=== PATIENT | female | born 1955 | race Caucasian/White ===

== ENCOUNTER 2020-11-17 20:30 | Inpatient (IN) ==
[2020-11-17] MEDS ORDERED: Isovue-370 500 ML BOTTLE IVP ONE (20:43)
[2020-11-17] MEDS ORDERED: 0.9 % Sodium Chloride 1,000 ML IVC ONE ×3 (20:43→22:12)
[2020-11-17] MEDS ORDERED: Ondansetron 4 MG/2 ML VIAL IVP ONE (20:43)
[2020-11-17] MEDS ORDERED: Ondansetron 4 MG/2 ML VIAL ONE (21:01)
[2020-11-17 21:11] LABS: VBG HCO3 25 mEq/L (21-27); VBG PCO2 61 mmHg (41-51); VBG PH 7.21 pH Units (7.32-7.42); VBG PO2 51 mmHg (25-50)
[2020-11-17 21:15] LABS: Basophils % 0.3 %; Eosinophils # 0.1 K/mcL (0.0-0.6); Eosinophils % 1.4 %; Hematocrit 38.2 % (35.3-44.9); Hemoglobin 11.9 g/dL (11.5-15.4); Immature Granulocytes % 0.4 % (0-4); Lymphocytes # 1.8 K/mcL (0.6-4.6); Lymphocytes % 18.1 %; Mean Corpuscular HGB Conc 31.2 g/dL (31.6-35.5); Mean Corpuscular Hemoglobin 27.4 pg (28.0-33.3); Mean Corpuscular Volume 87.8 fL (83.0-100.0); Mean Platelet Volume 10.1 fL (9.4-12.4); Monocytes # 0.7 K/mcL (0.0-1.3); Monocytes % 7.3 %; Neutrophils # 7.2 K/mcL (1.6-8.9); Platelet Count 204 K/mcL (140-400); Red Blood Count 4.35 M/mcL (3.82-4.97); Red Cell Distribution Width 14.4 % (11.5-14.5); Segmented Neutrophils % 72.5 %
[2020-11-17 21:16] LABS: INR 1.1; Prothrombin Time 12.8 Seconds (9.4-12.1)
[2020-11-17] MEDS ORDERED: Piperacillin/Tazobactam 3.375 GM in 0.9 % Sodium Chloride Mini Bag 100 ML IVPB ONE (21:16)
[2020-11-17] MEDS ORDERED: Vancomycin 1,750 MG/517.5 ML IV.SOLN IVPB ONE (21:16)
[2020-11-17 21:30] LABS: Bacteria,Urine Many per hpf (None-Few); Bilirubin,Urine Negative (Negative); Blood,Urine Moderate (Negative); Clarity,Urine Ex.Turbid (Clear); Color,Urine Yellow (Yellow); Glucose,Urine (UA) >=1000 mg/dL (Normal); Ketones,Urine Negative (Negative); Leukocyte Esterase,Urine Large (Negative); Mucus,Urine Few per lpf (None-Few); Nitrite,Urine Negative (Negative); Protein,Urine 50 mg/dL (Neg-Trace); RBC,Urine 30-50 per hpf (0-3); Specific Gravity,Urine 1.016 (1.010-1.025); Squamous Epithelial Cell,Urine Moderate per hpf (None-Few); Urobilinogen,Urine Normal (Normal); WBC,Urine TNTC per hpf (0-3)
[2020-11-17 21:34] LABS: Alanine Aminotransferase 14 Units/L (7-52); Albumin 3.8 g/dL (3.5-5.7); Albumin/Globulin Ratio 1.1 (1.1-2.2); Alkaline Phosphatase 102 Units/L (34-104); Aspartate Amino Transferase 56 Units/L (13-39); BUN/Creatinine Ratio 11 (6-26); Bilirubin,Direct 0.1 mg/dL (0.0-0.2); Bilirubin,Indirect 0.2 mg/dL (0.0-1.0); Bilirubin,Total 0.3 mg/dL (0.3-1.0); Blood Urea Nitrogen 63 mg/dL (8-23); Calcium 8.3 mg/dL (8.6-10.3); Carbon Dioxide 22 mEq/L (23-29); Chloride 97 mEq/L (98-107); Globulin 3.5 g/dL (2.4-3.5); Glucose 287 mg/dL (70-105); Lipase 17 Units/L (11-82); Osmolality,Calculated 304 (280-300); Potassium 4.5 mEq/L (3.5-5.1); Sodium 133 mEq/L (136-145); Total Protein 7.3 g/dL (6.4-8.9); Troponin I < 0.03 ng/mL (< 0.04); eGFR For African Americans 9 (> 60); eGFR For Non-African Americans 7 (> 60)
[2020-11-18] MEDS: Norepinephrine 4 MG/254 ML IV.SOLN IVC SCH (00:21)
[2020-11-18] MEDS ORDERED: Naloxone 0.4 MG/ML INJ IVP PRN (01:30)
[2020-11-18] MEDS ORDERED: 0.9 % Sodium Chloride 1,000 ML IVC SCH (01:30)
[2020-11-18] MEDS ORDERED: Ondansetron 4 MG/2 ML VIAL IVP PRN (01:30)
[2020-11-18] MEDS ORDERED: Vancomycin 1,750 MG in 0.9 % Sodium Chloride 250 ML IVPB SCH (02:00)
[2020-11-18] MEDS ORDERED: *HR* Dextrose 50 % in Water (Vial) 50 ML VIAL IVP PRN (02:12)
[2020-11-18] MEDS ORDERED: Dextrose Gel 15 GM/37.5 ML TUBE PO PRN ×2 (02:12)
[2020-11-18] MEDS ORDERED: D5% in Water 1,000 ML IVC PRN (02:12)
[2020-11-18] MEDS ORDERED: Insulin LISPRO 300 UNITS/3 ML VIAL SUBQ SCH (04:00)
[2020-11-18] MEDS: *HR* Heparin 5,000 UNIT/ML VIAL SQ SCH ×3 (05:15→21:20)
[2020-11-18 05:45] LABS: Basophils % 0.4 %; Eosinophils # 0.1 K/mcL (0.0-0.6); Eosinophils % 1.4 %; Immature Granulocytes % 0.2 % (0-4); Lymphocytes # 2.5 K/mcL (0.6-4.6); Lymphocytes % 30.2 %; Mean Corpuscular HGB Conc 31.2 g/dL (31.6-35.5); Mean Corpuscular Hemoglobin 27.6 pg (28.0-33.3); Mean Corpuscular Volume 88.5 fL (83.0-100.0); Mean Platelet Volume 10.5 fL (9.4-12.4); Monocytes # 0.4 K/mcL (0.0-1.3); Neutrophils # 5.3 K/mcL (1.6-8.9); Platelet Count 202 K/mcL (140-400); Red Blood Count 3.73 M/mcL (3.82-4.97); Red Cell Distribution Width 14.6 % (11.5-14.5); Segmented Neutrophils % 62.8 %; White Blood Count 8.4 K/mcL (4.3-11.1)
[2020-11-18 05:48] LABS: Hemoglobin 10.3 g/dL (11.5-15.4)
[2020-11-18 05:56] LABS: VBG HCO3 23 mEq/L (21-27); VBG PCO2 53 mmHg (41-51); VBG PH 7.24 pH Units (7.32-7.42); VBG PO2 74 mmHg (25-50)
[2020-11-18 06:09] LABS: Albumin/Globulin Ratio 1.1 (1.1-2.2); Bilirubin,Total 0.3 mg/dL (0.3-1.0); Calcium 7.2 mg/dL (8.6-10.3); Globulin 2.8 g/dL (2.4-3.5); Potassium 4.3 mEq/L (3.5-5.1); Total Protein 5.8 g/dL (6.4-8.9); Troponin I 0.03 ng/mL (< 0.04)
[2020-11-18 06:44] LABS: Adenovirus Not Detected (Not Detect); Bordetella Pertussis Not Detected (Not Detect); Chlamydophila pneumoniae Not Detected (Not Detect); Coronavirus 229E Not Detected (Not Detect); Coronavirus HKU1 Not Detected (Not Detect); Coronavirus NL63 Not Detected (Not Detect); Coronavirus OC43 Not Detected (Not Detect); Human Metapneumovirus Not Detected (Not Detect); Human Rhinovirus/Enterovirus Not Detected (Not Detect); Influenza A Subtype 2009 H1 Not Detected (Not Detect); Influenza B Not Detected (Not Detect); Mycoplasma pneumoniae Not Detected (Not Detect); Parainfluenza Virus 1 Not Detected (Not Detect); Parainfluenza Virus 2 Not Detected (Not Detect); Parainfluenza Virus 3 Not Detected (Not Detect); Parainfluenza Virus 4 Not Detected (Not Detect); Respiratory Syncytial Virus Not Detected (Not Detect); SARS-CoV-2 Not Detected (Not Detect)
[2020-11-18] MEDS: Insulin LISPRO 300 UNITS/3 ML VIAL SUBQ SCH ×5 (06:44→20:35)
[2020-11-18] MEDS: Piperacillin/Tazobactam 3.375 GM in 0.9 % Sodium Chloride Mini Bag 100 ML IVPB SCH ×2 (09:18→21:20)
[2020-11-18] MEDS ORDERED: Vancomycin 1,750 MG/517.5 ML IV.SOLN IVPB ONE (12:00)
[2020-11-18 15:14] LABS: Uric Acid 9.7 mg/dL (2.3-7.6)
[2020-11-18] MEDS ORDERED: Melatonin 3 MG TABLET PO PRN (21:14)
[2020-11-18] MEDS: Acetaminophen 325 MG TABLET PO PRN (21:20)
[2020-11-19] MEDS: Insulin LISPRO 300 UNITS/3 ML VIAL SUBQ SCH ×6 (01:09→20:07)
[2020-11-19] MEDS ORDERED: Vancomycin 1,750 MG in 0.9 % Sodium Chloride 250 ML IVPB SCH (02:00)
[2020-11-19] MEDS: Acetaminophen 325 MG TABLET PO PRN (04:20)
[2020-11-19] MEDS: *HR* Heparin 5,000 UNIT/ML VIAL SQ SCH ×3 (05:37→20:07)
[2020-11-19 05:58] LABS: Basophils % 0.4 %; Eosinophils # 0.2 K/mcL (0.0-0.6); Hematocrit 32.9 % (35.3-44.9); Hemoglobin 10.1 g/dL (11.5-15.4); Immature Granulocytes % 0.4 % (0-4); Lymphocytes # 2.4 K/mcL (0.6-4.6); Lymphocytes % 45.7 %; Mean Corpuscular HGB Conc 30.7 g/dL (31.6-35.5); Mean Corpuscular Hemoglobin 27.3 pg (28.0-33.3); Mean Corpuscular Volume 88.9 fL (83.0-100.0); Mean Platelet Volume 10.4 fL (9.4-12.4); Monocytes # 0.4 K/mcL (0.0-1.3); Monocytes % 7.2 %; Neutrophils # 2.2 K/mcL (1.6-8.9); Platelet Count 161 K/mcL (140-400); Red Cell Distribution Width 14.6 % (11.5-14.5); Segmented Neutrophils % 42.3 %; White Blood Count 5.3 K/mcL (4.3-11.1)
[2020-11-19 06:19] LABS: Albumin 2.9 g/dL (3.5-5.7); Bilirubin,Total 0.3 mg/dL (0.3-1.0); Calcium 7.6 mg/dL (8.6-10.3); Globulin 2.9 g/dL (2.4-3.5); Potassium 3.8 mEq/L (3.5-5.1); Total Protein 5.8 g/dL (6.4-8.9)
[2020-11-19] MEDS: Norepinephrine 4 MG/254 ML IV.SOLN IVC SCH (08:25)
[2020-11-19] MEDS: Piperacillin/Tazobactam 3.375 GM in 0.9 % Sodium Chloride Mini Bag 100 ML IVPB SCH ×2 (10:11→18:58)
[2020-11-19] MEDS ORDERED: Dextrose Gel 15 GM/37.5 ML TUBE PO PRN ×2 (10:38)
[2020-11-19] MEDS ORDERED: *HR* Dextrose 50 % in Water (Vial) 50 ML VIAL IVP PRN (10:38)
[2020-11-19] MEDS ORDERED: Naloxone 0.4 MG/ML INJ IVP PRN (10:38)
[2020-11-19] MEDS ORDERED: Melatonin 3 MG TABLET PO PRN (10:38)
[2020-11-19] MEDS ORDERED: Ondansetron 4 MG/2 ML VIAL IVP PRN (10:38)
[2020-11-19] MEDS ORDERED: D5% in Water 1,000 ML IVC PRN (10:38)
[2020-11-20] MEDS: Piperacillin/Tazobactam 3.375 GM in 0.9 % Sodium Chloride Mini Bag 100 ML IVPB SCH ×2 (01:40→09:52)
[2020-11-20] MEDS: Acetaminophen 325 MG TABLET PO PRN ×2 (04:09→17:10)
[2020-11-20] MEDS: *HR* Heparin 5,000 UNIT/ML VIAL SQ SCH ×3 (04:09→21:44)
[2020-11-20 07:02] LABS: VBG Ionized Calcium 1.02 mmol/L (1.15-1.35)
[2020-11-20 07:19] LABS: Immature Granulocytes % 0.3 % (0-4)
[2020-11-20 07:21] LABS: Basophils % 0.6 %; Eosinophils # 0.1 K/mcL (0.0-0.6); Eosinophils % 3.9 %; Hemoglobin 10.5 g/dL (11.5-15.4); Immature Platelets 5.2 % (1.1-6.1); Lymphocytes # 1.5 K/mcL (0.6-4.6); Mean Corpuscular HGB Conc 30.9 g/dL (31.6-35.5); Mean Corpuscular Hemoglobin 27.6 pg (28.0-33.3); Mean Corpuscular Volume 89.2 fL (83.0-100.0); Mean Platelet Volume 11.1 fL (9.4-12.4); Monocytes # 0.3 K/mcL (0.0-1.3); Monocytes % 7.3 %; Neutrophils # 1.7 K/mcL (1.6-8.9); Platelet Count 131 K/mcL (140-400); Red Blood Count 3.81 M/mcL (3.82-4.97); Red Cell Distribution Width 14.8 % (11.5-14.5); Segmented Neutrophils % 46.9 %; White Blood Count 3.6 K/mcL (4.3-11.1)
[2020-11-20] MEDS ORDERED: Insulin LISPRO 300 UNITS/3 ML VIAL SUBQ SCH (07:30)
[2020-11-20 07:36] LABS: Albumin 3.1 g/dL (3.5-5.7); Bilirubin,Total 0.2 mg/dL (0.3-1.0); Calcium 8.1 mg/dL (8.6-10.3); Globulin 3.1 g/dL (2.4-3.5); Magnesium 1.5 mg/dL (1.6-2.6); Phosphorous 2.2 mg/dL (2.7-4.5); Potassium 4.7 mEq/L (3.5-5.1); Total Protein 6.2 g/dL (6.4-8.9)
[2020-11-20] MEDS ORDERED: Melatonin 3 MG TABLET PO PRN (07:56)
[2020-11-20] MEDS: hydroCHLOROthiazide 25 MG TABLET PO SCH (09:51)
[2020-11-20] MEDS: lisinopriL 20 MG TABLET PO SCH (09:51)
[2020-11-20] MEDS: Pregabalin 75 MG CAPSULE PO SCH ×3 (09:51→21:44)
[2020-11-20] MEDS: Insulin LISPRO 300 UNITS/3 ML VIAL SUBQ SCH ×4 (09:52→22:37)
[2020-11-20] MEDS ORDERED: Metoclopramide 10 MG/2 ML VIAL IVP ONE (12:15)
[2020-11-20 16:26] LABS: Estimated Average Glucose 395 mg/dl; Hemoglobin A1C 15.4 %
[2020-11-20] MEDS: Insulin DETEMIR 100 UNIT/ML X5UNITS SUBQ SCH (17:12)
[2020-11-21] MEDS: Acetaminophen 325 MG TABLET PO PRN ×3 (04:36→21:20)
[2020-11-21] MEDS: *HR* Heparin 5,000 UNIT/ML VIAL SQ SCH ×3 (04:36→21:19)
[2020-11-21 05:01] LABS: Hematocrit 38.5 % (35.3-44.9); Mean Corpuscular HGB Conc 31.2 g/dL (31.6-35.5); Mean Corpuscular Hemoglobin 27.6 pg (28.0-33.3); Mean Corpuscular Volume 88.5 fL (83.0-100.0); Mean Platelet Volume 11.5 fL (9.4-12.4); Platelet Count 189 K/mcL (140-400); Red Blood Count 4.35 M/mcL (3.82-4.97); Red Cell Distribution Width 14.4 % (11.5-14.5)
[2020-11-21 05:06] LABS: White Blood Count 5.5 K/mcL (4.3-11.1)
[2020-11-21 05:08] LABS: Calcium 8.7 mg/dL (8.6-10.3); Potassium 4.9 mEq/L (3.5-5.1)
[2020-11-21] MEDS: hydroCHLOROthiazide 25 MG TABLET PO SCH (08:05)
[2020-11-21] MEDS: Insulin DETEMIR 100 UNIT/ML X5UNITS SUBQ SCH (08:06)
[2020-11-21] MEDS: Insulin LISPRO 300 UNITS/3 ML VIAL SUBQ SCH ×4 (08:06→21:21)
[2020-11-21] MEDS: Pregabalin 75 MG CAPSULE PO SCH ×3 (08:06→21:19)
[2020-11-21] MEDS: lisinopriL 20 MG TABLET PO SCH (08:06)
[2020-11-22] MEDS: Acetaminophen 325 MG TABLET PO PRN (04:51)
[2020-11-22] MEDS: *HR* Heparin 5,000 UNIT/ML VIAL SQ SCH (04:51)
[2020-11-22 08:02] VITALS: BP 153/73
[2020-11-22] MEDS: Pregabalin 75 MG CAPSULE PO SCH (09:08)
[2020-11-22] MEDS: lisinopriL 20 MG TABLET PO SCH (09:08)
[2020-11-22] MEDS: hydroCHLOROthiazide 25 MG TABLET PO SCH (09:08)
[2020-11-22] MEDS: Insulin DETEMIR 100 UNIT/ML X5UNITS SUBQ SCH (09:13)
[2020-11-22] MEDS: Insulin LISPRO 300 UNITS/3 ML VIAL SUBQ SCH (09:13)
== END 2020-11-22 13:20 | disposition home health service (06) | DRG 871 ==
LOC: EMEROOARM 20:30 → SUATTDRO 11-18 00:39 → ICNU 11-18 00:39 → 2ANU 11-19 12:19
PROVIDERS: ADMIT Student in an Organized Health Care Education/Training Program; ATTEND Internal Medicine

== ENCOUNTER 2021-03-10 16:27 | Inpatient (IN) ==
[2021-03-10] MEDS ORDERED: 0.9 % Sodium Chloride 1,000 ML IVC ONE (18:21)
[2021-03-10] MEDS ORDERED: Prochlorperazine 10 MG/2 ML VIAL IVP STA (18:21)
[2021-03-10 18:59] LABS: Basophils # 0.1 K/mcL (0.0-0.2); Basophils % 0.4 %; Eosinophils # 0.1 K/mcL (0.0-0.6); Eosinophils % 0.4 %; Hematocrit 33.9 % (35.3-44.9); Hemoglobin 10.6 g/dL (11.5-15.4); Immature Granulocytes % 0.6 % (0-4); Lymphocytes # 2.4 K/mcL (0.6-4.6); Mean Corpuscular HGB Conc 31.3 g/dL (31.6-35.5); Mean Corpuscular Hemoglobin 26.9 pg (28.0-33.3); Mean Platelet Volume 10.1 fL (9.4-12.4); Monocytes # 0.8 K/mcL (0.0-1.3); Monocytes % 5.8 %; Neutrophils # 10.7 K/mcL (1.6-8.9); Platelet Count 209 K/mcL (140-400); Red Blood Count 3.94 M/mcL (3.82-4.97); Red Cell Distribution Width 13.6 % (11.5-14.5); Segmented Neutrophils % 75.8 %; White Blood Count 14.1 K/mcL (4.3-11.1)
[2021-03-10 19:06] LABS: INR 1.3; Prothrombin Time 14.4 Seconds (9.4-12.1)
[2021-03-10 19:21] LABS: Alanine Aminotransferase 6 Units/L (7-52); Albumin 2.9 g/dL (3.5-5.7); Albumin/Globulin Ratio 0.9 (1.1-2.2); Alkaline Phosphatase 87 Units/L (34-104); Aspartate Amino Transferase 6 Units/L (13-39); BUN/Creatinine Ratio 25 (6-26); Bilirubin,Total 0.3 mg/dL (0.3-1.0); Blood Urea Nitrogen 39 mg/dL (8-23); Carbon Dioxide 18 mEq/L (23-29); Chloride 104 mEq/L (98-107); Globulin 3.2 g/dL (2.4-3.5); Glucose 345 mg/dL (70-105); Osmolality,Calculated 299 (280-300); Potassium 3.4 mEq/L (3.5-5.1); Sodium 133 mEq/L (136-145); Total Protein 6.1 g/dL (6.4-8.9); Troponin I < 0.03 ng/mL (< 0.04); eGFR For African Americans 41 (> 60); eGFR For Non-African Americans 34 (> 60)
[2021-03-10 20:48] LABS: Bacteria,Urine Few per hpf (None-Few); Bilirubin,Urine Negative (Negative); Blood,Urine Trace (Negative); Budding Yeast,Urine Few per hpf (None Seen); Clarity,Urine Ex.Turbid (Clear); Color,Urine Yellow (Yellow); Glucose,Urine (UA) >=1000 mg/dL (Normal); Ketones,Urine Negative (Negative); Leukocyte Esterase,Urine Large (Negative); Mucus,Urine Few per lpf (None-Few); Nitrite,Urine Negative (Negative); Protein,Urine Trace mg/dL (Neg-Trace); Specific Gravity,Urine 1.022 (1.010-1.025); Squamous Epithelial Cell,Urine Few per hpf (None-Few); Urobilinogen,Urine Normal (Normal); WBC,Urine TNTC per hpf (0-3)
[2021-03-10] MEDS ORDERED: cefTRIAXone 1,000 MG in Water for inj. (sterile) 10 ML IVP ONE (20:56)
[2021-03-10] MEDS ORDERED: Naloxone 0.4 MG/ML INJ IVP PRN (21:23)
[2021-03-10] MEDS ORDERED: Melatonin 3 MG TABLET PO PRN (21:23)
[2021-03-10] MEDS ORDERED: 0.9 % Sodium Chloride 1,000 ML IVC SCH (21:30)
[2021-03-10] MEDS ORDERED: D5% in Water 1,000 ML IVC PRN (22:26)
[2021-03-10] MEDS ORDERED: *HR* Dextrose 50 % in Water (Vial) 50 ML VIAL IVP PRN (22:26)
[2021-03-10] MEDS ORDERED: Dextrose Gel 15 GM/37.5 ML TUBE PO PRN ×2 (22:26)
[2021-03-10] MEDS ORDERED: Insulin DETEMIR 100 UNIT/ML X5UNITS SUBQ SCH (22:30)
[2021-03-10 23:10] LABS: Adenovirus Not Detected (Not Detect); Bordetella Pertussis Not Detected (Not Detect); Chlamydophila pneumoniae Not Detected (Not Detect); Coronavirus 229E Not Detected (Not Detect); Coronavirus HKU1 Not Detected (Not Detect); Coronavirus NL63 Not Detected (Not Detect); Coronavirus OC43 Not Detected (Not Detect); Human Metapneumovirus Not Detected (Not Detect); Human Rhinovirus/Enterovirus Not Detected (Not Detect); Influenza A Subtype 2009 H1 Not Detected (Not Detect); Influenza B Not Detected (Not Detect); Mycoplasma pneumoniae Not Detected (Not Detect); Parainfluenza Virus 1 Not Detected (Not Detect); Parainfluenza Virus 2 Not Detected (Not Detect); Parainfluenza Virus 3 Not Detected (Not Detect); Parainfluenza Virus 4 Not Detected (Not Detect); Respiratory Syncytial Virus Not Detected (Not Detect); SARS-CoV-2 Not Detected (Not Detect)
[2021-03-11] MEDS ORDERED: Prochlorperazine 10 MG/2 ML VIAL IVP PRN ×2 (01:06→23:35)
[2021-03-11] MEDS ORDERED: 0.9 % Sodium Chloride 1,000 ML IVC SCH (01:32)
[2021-03-11] MEDS: Insulin LISPRO 300 UNITS/3 ML VIAL SUBQ SCH ×10 (01:40→23:56)
[2021-03-11] MEDS ORDERED: Gadolinium Contrast Agent (WT Based) IV PRN ×2 (04:11→11:53)
[2021-03-11 06:04] LABS: C-Reactive Protein 154 mg/L (Less than 10)
[2021-03-11] MEDS ORDERED: Ketorolac 30 MG/ML VIAL IVP ONE ×2 (07:56→23:30)
[2021-03-11] MEDS: cefTRIAXone 1,000 MG in 0.9 % Sodium Chloride Mini Bag 100 ML IVPB SCH (08:00)
[2021-03-11 08:58] LABS: Hematocrit 32.2 % (35.3-44.9); Hemoglobin 10.5 g/dL (11.5-15.4); Mean Corpuscular HGB Conc 32.6 g/dL (31.6-35.5); Mean Corpuscular Hemoglobin 27.9 pg (28.0-33.3); Mean Corpuscular Volume 85.4 fL (83.0-100.0); Platelet Count 190 K/mcL (140-400); Red Blood Count 3.77 M/mcL (3.82-4.97); White Blood Count 12.6 K/mcL (4.3-11.1)
[2021-03-11 09:31] LABS: Calcium 8.5 mg/dL (8.6-10.3)
[2021-03-11] MEDS: Prochlorperazine 10 MG/2 ML VIAL IVP SCH (10:15)
[2021-03-11] MEDS ORDERED: Isovue-370 500 ML BOTTLE IVP ONE (11:51)
[2021-03-11] MEDS ORDERED: Vancomycin 1,750 MG/517.5 ML IV.SOLN IVPB ONE (13:00)
[2021-03-11] MEDS: *HR* Heparin 5,000 UNIT/ML VIAL SQ SCH (16:36)
[2021-03-11] MEDS: Insulin DETEMIR 100 UNIT/ML X5UNITS SUBQ SCH (20:02)
[2021-03-11] MEDS: SUMAtriptan succinate 50 MG TABLET PO PRN ×2 (20:03→22:40)
[2021-03-11] MEDS ORDERED: *HR* Metoprolol 5 MG/5 ML VIAL IVP ONE (22:48)
[2021-03-12 02:22] LABS: Hematocrit 33.8 % (35.3-44.9); Hemoglobin 10.7 g/dL (11.5-15.4); Mean Corpuscular HGB Conc 31.7 g/dL (31.6-35.5); Mean Corpuscular Hemoglobin 27.2 pg (28.0-33.3); Mean Corpuscular Volume 85.8 fL (83.0-100.0); Platelet Count 154 K/mcL (140-400); Red Blood Count 3.94 M/mcL (3.82-4.97); Red Cell Distribution Width 13.9 % (11.5-14.5); White Blood Count 10.8 K/mcL (4.3-11.1)
[2021-03-12] MEDS: Insulin LISPRO 300 UNITS/3 ML VIAL SUBQ SCH ×7 (02:35→21:55)
[2021-03-12 02:37] LABS: Albumin 3.2 g/dL (3.5-5.7); Albumin/Globulin Ratio 0.8 (1.1-2.2); Bilirubin,Total 0.3 mg/dL (0.3-1.0); Calcium 8.6 mg/dL (8.6-10.3); Globulin 3.8 g/dL (2.4-3.5); Potassium 4.6 mEq/L (3.5-5.1)
[2021-03-12 04:07] LABS: Estimated Average Glucose 401 mg/dl; Hemoglobin A1C 15.6 %
[2021-03-12] MEDS: *HR* Heparin 5,000 UNIT/ML VIAL SQ SCH ×2 (05:20→16:37)
[2021-03-12] MEDS: Prochlorperazine 10 MG/2 ML VIAL IVP SCH (07:51)
[2021-03-12] MEDS: SUMAtriptan succinate 50 MG TABLET PO PRN ×3 (07:52→21:54)
[2021-03-12] MEDS: Insulin DETEMIR 100 UNIT/ML X5UNITS SUBQ SCH ×2 (07:52→21:54)
[2021-03-12] MEDS: cefTRIAXone 1,000 MG in 0.9 % Sodium Chloride Mini Bag 100 ML IVPB SCH (07:53)
[2021-03-12] MEDS ORDERED: Gadolinium Contrast Agent (WT Based) IV PRN (08:32)
[2021-03-12] MEDS ORDERED: Vancomycin 1,750 MG in 0.9 % Sodium Chloride 250 ML IVPB SCH (09:00)
[2021-03-12] MEDS: Acetaminophen 325 MG TABLET PO PRN (10:41)
[2021-03-12] MEDS ORDERED: *HR* OxyCODONE Immed Rel 5 MG TABLET PO ONE (10:43)
[2021-03-12] MEDS ORDERED: Vancomycin 1,750 MG/517.5 ML IV.SOLN IVPB SCH (13:00)
[2021-03-12 14:16] LABS: Glucose,CSF 159 mg/dL (40-70); Total Protein,CSF 114 mg/dL (15-45)
[2021-03-12 14:18] LABS: Red Blood Cell,CSF 19000 RBC/mcL
[2021-03-12] MEDS ORDERED: Isovue-370 500 ML BOTTLE IVP ONE (15:17)
[2021-03-12] MEDS: Acyclovir 600 MG in D5% in Water 250 ML IVPB SCH (15:30)
[2021-03-12] MEDS ORDERED: Ringers Solution, Lactated 1,000 ML IVC SCH (15:30)
[2021-03-12 15:39] LABS: Appearance,CSF Bloody (Clear); Basophils,CSF 0 %; Eosinophils,CSF 0 %
[2021-03-12 16:01] LABS: Protein/Creatinine Ratio,Urine 0.97 mg/mg (0.00-0.20); Sodium, Urine 58.3 mEq/L
[2021-03-12 16:45] LABS: Uric Acid 7.4 mg/dL (2.3-7.6)
[2021-03-12 17:07] LABS: Lactate Dehydrogenase 184 Units/L (140-271)
[2021-03-12] MEDS ORDERED: Metoclopramide 10 MG/2 ML VIAL IVP ONE (17:41)
[2021-03-12] MEDS ORDERED: Prochlorperazine 10 MG/2 ML VIAL IVP PRN (17:42)
[2021-03-12] MEDS: Ondansetron 4 MG/2 ML VIAL IVP PRN (17:53)
[2021-03-12 17:56] LABS: Ferritin 119 ng/mL (10-120)
[2021-03-12] MEDS ORDERED: levoFLOXacin 750 MG TABLET PO SCH (20:15)
[2021-03-12] MEDS ORDERED: *HR* Metoprolol 5 MG/5 ML VIAL IVP ONE (23:09)
[2021-03-13 02:10] LABS: Complement C3 195 mg/dL (87-200)
[2021-03-13 03:42] LABS: Hepatitis B Surface Antigen Nonreactive (Nonreactive)
[2021-03-13 04:11] LABS: Hepatitis B Core IgM Nonreactive (Nonreactive); Hepatitis C Virus Antibody Nonreactive (Nonreactive)
[2021-03-13 04:13] LABS: Hepatitis A Antibody IgM Nonreactive (Nonreactive)
[2021-03-13] MEDS: *HR* Heparin 5,000 UNIT/ML VIAL SQ SCH ×2 (05:42→17:01)
[2021-03-13] MEDS: Acetaminophen 325 MG TABLET PO PRN ×2 (05:43→13:33)
[2021-03-13] MEDS: SUMAtriptan succinate 50 MG TABLET PO PRN ×2 (05:44→20:16)
[2021-03-13 06:04] LABS: Hematocrit 34.8 % (35.3-44.9); Hemoglobin 10.8 g/dL (11.5-15.4); Mean Corpuscular Hemoglobin 26.9 pg (28.0-33.3); Mean Corpuscular Volume 86.8 fL (83.0-100.0); Platelet Count 214 K/mcL (140-400); Red Blood Count 4.01 M/mcL (3.82-4.97); Red Cell Distribution Width 13.5 % (11.5-14.5); White Blood Count 8.5 K/mcL (4.3-11.1)
[2021-03-13 06:30] LABS: Albumin 3.6 g/dL (3.5-5.7); Albumin/Globulin Ratio 0.9 (1.1-2.2); Bilirubin,Total 0.3 mg/dL (0.3-1.0); Calcium 9.1 mg/dL (8.6-10.3); Globulin 3.9 g/dL (2.4-3.5); Potassium 4.6 mEq/L (3.5-5.1); Total Protein 7.5 g/dL (6.4-8.9)
[2021-03-13] MEDS: Insulin DETEMIR 100 UNIT/ML X5UNITS SUBQ SCH ×2 (07:52→20:16)
[2021-03-13] MEDS: Ondansetron 4 MG/2 ML VIAL IVP PRN (07:52)
[2021-03-13] MEDS: Insulin LISPRO 300 UNITS/3 ML VIAL SUBQ SCH ×3 (07:52→17:02)
[2021-03-13] MEDS: Acyclovir 600 MG in D5% in Water 250 ML IVPB SCH (14:08)
[2021-03-13] MEDS ORDERED: Ondansetron 4 MG/2 ML VIAL IVP ONE (14:31)
[2021-03-13] MEDS: lisinopriL 10 MG TABLET PO SCH (14:41)
[2021-03-13] MEDS: MethylPREDNISolone 40 MG/ML VIAL IVP SCH (17:01)
[2021-03-13] MEDS ORDERED: Prochlorperazine 10 MG/2 ML VIAL IVP PRN (17:43)
[2021-03-13] MEDS ORDERED: levoFLOXacin 750 MG TABLET PO SCH (18:00)
[2021-03-13] MEDS ORDERED: Insulin LISPRO 300 UNITS/3 ML VIAL SUBQ SCH ×2 (21:00)
[2021-03-14] MEDS ORDERED: Acyclovir 800 MG in D5% in Water 250 ML IVPB SCH (03:00)
[2021-03-14] MEDS: SUMAtriptan succinate 50 MG TABLET PO PRN (03:26)
[2021-03-14] MEDS: Ondansetron 4 MG/2 ML VIAL IVP PRN ×2 (03:26→12:13)
[2021-03-14 03:43] LABS: Hematocrit 36.4 % (35.3-44.9); Hemoglobin 11.3 g/dL (11.5-15.4); Mean Corpuscular Hemoglobin 26.8 pg (28.0-33.3); Mean Corpuscular Volume 86.3 fL (83.0-100.0); Mean Platelet Volume 9.8 fL (9.4-12.4); Platelet Count 270 K/mcL (140-400); Red Blood Count 4.22 M/mcL (3.82-4.97); Red Cell Distribution Width 13.5 % (11.5-14.5); White Blood Count 6.9 K/mcL (4.3-11.1)
[2021-03-14 04:03] LABS: Albumin 3.5 g/dL (3.5-5.7); Albumin/Globulin Ratio 0.8 (1.1-2.2); Bilirubin,Total 0.3 mg/dL (0.3-1.0); Calcium 9.4 mg/dL (8.6-10.3); Globulin 4.3 g/dL (2.4-3.5); Potassium 4.7 mEq/L (3.5-5.1); Total Protein 7.8 g/dL (6.4-8.9)
[2021-03-14] MEDS: *HR* Heparin 5,000 UNIT/ML VIAL SQ SCH (06:16)
[2021-03-14 06:42] VITALS: BP 150/88
[2021-03-14] MEDS: MethylPREDNISolone 40 MG/ML VIAL IVP SCH (08:08)
[2021-03-14] MEDS: Insulin DETEMIR 100 UNIT/ML X5UNITS SUBQ SCH (08:08)
[2021-03-14] MEDS: Insulin LISPRO 300 UNITS/3 ML VIAL SUBQ SCH ×2 (08:08→12:33)
[2021-03-14] MEDS: lisinopriL 10 MG TABLET PO SCH (08:08)
[2021-03-14] MEDS ORDERED: Pregabalin 75 MG CAPSULE PO SCH (09:00)
[2021-03-14 17:58] LABS: HSV Source CSF
[2021-03-14 18:26] LABS: Enterovirus RNA Qual (PCR) NOT DETECTED
== END 2021-03-14 13:26 | disposition home or self-care (01) | DRG 871 ==
LOC: 3BNU 16:27 → EMEROOARM 16:27 → SUATTDRO 23:16 → 3BNU 23:40 → SUATTDRO 03-11 15:27
PROVIDERS: ADMIT Internal Medicine; ATTEND Internal Medicine

== ENCOUNTER 2021-06-10 21:14 | Inpatient (IN) ==
[2021-06-10 21:24] LABS: ABG Base Excess -4 mEq/L (-2 to 3); ABG HCO3 22 mEq/L (21-27); ABG Oxygen Saturation 98 % (95-98); ABG PCO2 40 mmHg (35-45); ABG PH 7.34 pH Units (7.32-7.45); ABG PO2 116 mmHg (85-104); ABG TCO2 23 mEq/L (20-26)
[2021-06-10] MEDS ORDERED: Isovue-370 500 ML BOTTLE IVP ONE (21:25)
[2021-06-10] MEDS: 0.9 % Sodium Chloride 1,000 ML IVC SCH ×2 (22:12→23:21)
[2021-06-10 22:40] LABS: INR 1.2; Prothrombin Time 13.4 Seconds (9.4-12.1)
[2021-06-10 22:42] LABS: Bacteria,Urine Few per hpf (None-Few); Bilirubin,Urine Negative (Negative); Blood,Urine Small (Negative); Clarity,Urine Clear (Clear); Color,Urine Colorless (Yellow); Glucose,Urine (UA) >=1000 mg/dL (Normal); Ketones,Urine 10 mg/dL (Negative); Leukocyte Esterase,Urine Small (Negative); Nitrite,Urine Positive (Negative); Protein,Urine 100 mg/dL (Neg-Trace); RBC,Urine 0-3 per hpf (0-3); Specific Gravity,Urine 1.021 (1.010-1.025); Squamous Epithelial Cell,Urine Few per hpf (None-Few); Urobilinogen,Urine Normal (Normal); WBC,Urine 50-100 per hpf (0-3)
[2021-06-10 22:43] LABS: Activated Partial Thrombo Time 27.3 Seconds (26.0-36.0)
[2021-06-10] MEDS ORDERED: cefTRIAXone 1,000 MG in 0.9 % Sodium Chloride Mini Bag 100 ML IVPB ONE (22:43)
[2021-06-10 22:55] LABS: Troponin I 0.03 ng/mL (< 0.04)
[2021-06-10 23:00] LABS: Alanine Aminotransferase 8 Units/L (7-52); Albumin 4.1 g/dL (3.5-5.7); Alkaline Phosphatase 163 Units/L (34-104); Aspartate Amino Transferase 13 Units/L (13-39); BUN/Creatinine Ratio 13 (6-26); Bilirubin,Total 0.4 mg/dL (0.3-1.0); Blood Urea Nitrogen 18 mg/dL (8-23); Calcium 9.4 mg/dL (8.6-10.3); Carbon Dioxide 22 mEq/L (23-29); Chloride 91 mEq/L (98-107); Creatine Kinase 61 Units/L (30-223); Ethanol < 10 mg/dL (Less than 10); Globulin 4.1 g/dL (2.4-3.5); Glucose 599 mg/dL (70-105); Magnesium 1.9 mg/dL (1.6-2.6); Osmolality,Calculated 298 (280-300); Phosphorous 3.1 mg/dL (2.7-4.5); Potassium 4.2 mEq/L (3.5-5.1); Sodium 129 mEq/L (136-145); Total Protein 8.2 g/dL (6.4-8.9); eGFR For African Americans 45 (> 60); eGFR For Non-African Americans 37 (> 60)
[2021-06-10] MEDS ORDERED: Nitroglycerin 0.4 MG TAB.SUBL SL SCH (23:45)
[2021-06-11] MEDS ORDERED: *HR* FentaNYL (PF) 100 MCG/2 ML VIAL IVP STA
[2021-06-11] MEDS ORDERED: Nitroglycerin 1 INCH/GM PACKET TP STA ×2 (00:01→00:02)
[2021-06-11 00:44] LABS: Basophils % 0.2 %; Hematocrit 44.7 % (35.3-44.9); Hemoglobin 13.8 g/dL (11.5-15.4); Immature Granulocytes % 0.6 % (0-4); Lymphocytes % 6.3 %; Mean Corpuscular HGB Conc 30.9 g/dL (31.6-35.5); Mean Corpuscular Hemoglobin 26.2 pg (28.0-33.3); Monocytes # 0.4 K/mcL (0.0-1.3); Monocytes % 2.5 %; Neutrophils # 14.5 K/mcL (1.6-8.9); Platelet Count 312 K/mcL (140-400); Red Blood Count 5.26 M/mcL (3.82-4.97); Red Cell Distribution Width 13.2 % (11.5-14.5); Segmented Neutrophils % 90.4 %; White Blood Count 16.1 K/mcL (4.3-11.1)
[2021-06-11 00:54] LABS: Estimated Average Glucose 315 mg/dl; Hemoglobin A1C 12.6 %
[2021-06-11] MEDS ORDERED: Furosemide 40 MG/4 ML VIAL ONE (01:11)
[2021-06-11] MEDS ORDERED: Furosemide 40 MG/4 ML VIAL IVP ONE (01:12)
[2021-06-11] MEDS ORDERED: Levalbuterol Neb 1.25 MG/3 ML ONE (01:17)
[2021-06-11] MEDS ORDERED: 0.9 % Sodium Chloride 1,000 ML IVC ONE (02:26)
[2021-06-11] MEDS ORDERED: Naloxone 0.4 MG/ML INJ IVP PRN (02:26)
[2021-06-11] MEDS ORDERED: Ondansetron 4 MG/2 ML VIAL IVP PRN (02:26)
[2021-06-11] MEDS ORDERED: D5% in Water 1,000 ML IVC PRN (02:42)
[2021-06-11] MEDS ORDERED: *HR* Dextrose 50 % in Water (Vial) 50 ML VIAL IVP PRN ×3 (02:42→18:26)
[2021-06-11] MEDS ORDERED: Dextrose Gel 15 GM/37.5 ML TUBE PO PRN ×2 (02:42)
[2021-06-11] MEDS ORDERED: Insulin Human Regular 10 UNIT in 0.9 % Sodium Chloride 10 ML IV ONE (02:43)
[2021-06-11] MEDS ORDERED: Insulin LISPRO 300 UNITS/3 ML VIAL SUBQ SCH (04:00)
[2021-06-11] MEDS: Piperacillin/Tazobactam 3.375 GM in 0.9 % Sodium Chloride Mini Bag 100 ML IVPB SCH ×3 (04:13→15:59)
[2021-06-11] MEDS: *HR* Metoprolol 5 MG/5 ML VIAL IVP PRN (04:23)
[2021-06-11 04:40] LABS: ABG Base Excess -9 mEq/L (-2 to 3); ABG HCO3 15 mEq/L (21-27); ABG Oxygen Saturation 95 % (95-98); ABG PCO2 27 mmHg (35-45); ABG PH 7.35 pH Units (7.32-7.45); ABG PO2 81 mmHg (85-104); ABG TCO2 16 mEq/L (20-26)
[2021-06-11] MEDS ORDERED: Isovue-370 500 ML BOTTLE IVP ONE ×3 (04:58→12:33)
[2021-06-11 05:08] LABS: Calcium 9.3 mg/dL (8.6-10.3); Magnesium 1.7 mg/dL (1.6-2.6); Phosphorous 4.4 mg/dL (2.7-4.5); Potassium 3.8 mEq/L (3.5-5.1)
[2021-06-11] MEDS ORDERED: Insulin Regular, Human 100 UNIT/ML IV PRN (05:12)
[2021-06-11 05:21] LABS: Adenovirus Not Detected (Not Detect); Bordetella Pertussis Not Detected (Not Detect); Chlamydophila pneumoniae Not Detected (Not Detect); Coronavirus 229E Not Detected (Not Detect); Coronavirus HKU1 Not Detected (Not Detect); Coronavirus NL63 Not Detected (Not Detect); Coronavirus OC43 Not Detected (Not Detect); Human Metapneumovirus Not Detected (Not Detect); Human Rhinovirus/Enterovirus Not Detected (Not Detect); Influenza A Subtype 2009 H1 Not Detected (Not Detect); Influenza B Not Detected (Not Detect); Mycoplasma pneumoniae Not Detected (Not Detect); Parainfluenza Virus 1 Not Detected (Not Detect); Parainfluenza Virus 2 Not Detected (Not Detect); Parainfluenza Virus 3 Not Detected (Not Detect); Parainfluenza Virus 4 Not Detected (Not Detect); Respiratory Syncytial Virus Not Detected (Not Detect); SARS-CoV-2 Not Detected (Not Detect)
[2021-06-11 05:35] LABS: Thyroid Stimulating Hormone 0.755 mcIU/mL (0.340-5.600)
[2021-06-11 05:39] LABS: Procalcitonin 0.59 ng/mL (0.00-0.15)
[2021-06-11 05:46] LABS: VBG HCO3 17 mEq/L (21-27); VBG PCO2 36 mmHg (41-51); VBG PH 7.29 pH Units (7.32-7.42); VBG PO2 65 mmHg (25-50)
[2021-06-11] MEDS ORDERED: Vancomycin 1,750 MG/517.5 ML IV.SOLN IVPB ONE (06:00)
[2021-06-11 06:19] LABS: Calcium 8.8 mg/dL (8.6-10.3); Potassium 4.2 mEq/L (3.5-5.1)
[2021-06-11] MEDS: 0.9 % Sodium Chloride 1,000 ML IVC SCH ×2 (06:43→18:38)
[2021-06-11 07:31] LABS: INR 1.2
[2021-06-11 08:53] LABS: Calcium 8.8 mg/dL (8.6-10.3); Potassium 4.7 mEq/L (3.5-5.1)
[2021-06-11] MEDS ORDERED: Acetaminophen IV 1,000 MG/100 ML BAG IVPB ONE (09:13)
[2021-06-11 09:33] LABS: VBG HCO3 18 mEq/L (21-27); VBG Ionized Calcium 1.04 mmol/L (1.15-1.35); VBG PCO2 33 mmHg (41-51); VBG PH 7.35 pH Units (7.32-7.42); VBG PO2 49 mmHg (25-50)
[2021-06-11 09:34] LABS: Basophils # 0.1 K/mcL (0.0-0.2); Basophils % 0.2 %; Hematocrit 44.8 % (35.3-44.9); Hemoglobin 13.5 g/dL (11.5-15.4); Immature Granulocytes % 0.9 % (0-4); Lymphocytes # 0.8 K/mcL (0.6-4.6); Lymphocytes % 3.5 %; Mean Corpuscular HGB Conc 30.1 g/dL (31.6-35.5); Mean Corpuscular Volume 86.3 fL (83.0-100.0); Mean Platelet Volume 10.6 fL (9.4-12.4); Monocytes % 4.3 %; Neutrophils # 20.1 K/mcL (1.6-8.9); Platelet Count 474 K/mcL (140-400); Red Blood Count 5.19 M/mcL (3.82-4.97); Red Cell Distribution Width 13.5 % (11.5-14.5); Segmented Neutrophils % 91.1 %; White Blood Count 22.1 K/mcL (4.3-11.1)
[2021-06-11 09:43] LABS: Magnesium 1.7 mg/dL (1.6-2.6); Potassium 3.7 mEq/L (3.5-5.1)
[2021-06-11] MEDS: Calcium Gluconate 1gm/50mL 1 GM/50 ML BAG IVPB SCH ×2 (10:42→11:40)
[2021-06-11 12:48] LABS: VBG HCO3 21 mEq/L (21-27); VBG Ionized Calcium 1.22 mmol/L (1.15-1.35); VBG PCO2 39 mmHg (41-51); VBG PH 7.34 pH Units (7.32-7.42); VBG PO2 50 mmHg (25-50)
[2021-06-11 13:04] LABS: BUN/Creatinine Ratio 13 (6-26); Blood Urea Nitrogen 24 mg/dL (8-23); Calcium 10.2 mg/dL (8.6-10.3); Carbon Dioxide 20 mEq/L (23-29); Chloride 99 mEq/L (98-107); Glucose 399 mg/dL (70-105); Magnesium 2.4 mg/dL (1.6-2.6); Osmolality,Calculated 303 (280-300); Phosphorous < 1.0 mg/dL (2.7-4.5); Potassium 3.5 mEq/L (3.5-5.1); Sodium 136 mEq/L (136-145); eGFR For African Americans 32 (> 60); eGFR For Non-African Americans 26 (> 60)
[2021-06-11] MEDS ORDERED: Potassium Phosphate 44 MEQ in 0.9 % Sodium Chloride 250 ML IVPB ONE (13:20)
[2021-06-11] MEDS ORDERED: Perflutren Lipid Microsphere 1.3 ML in 0.9 % Sodium Chloride 8.7 ML IVP PRN (13:41)
[2021-06-11] MEDS ORDERED: Artificial Tears SOLN 15 ML BOTTLE BOTH EYES PRN (13:42)
[2021-06-11] MEDS: FentaNYL (PF) 1,000 MCG/100 ML IV.SOLN IVC SCH (14:22)
[2021-06-11] MEDS: Dexmedetomidine HCl 400 MCG/100 ML MLS IVC SCH ×2 (14:22→23:00)
[2021-06-11 15:21] LABS: ABG Base Excess -3 mEq/L (-2 to 3); ABG HCO3 21 mEq/L (21-27); ABG Oxygen Saturation 99 % (95-98); ABG PCO2 32 mmHg (35-45); ABG PH 7.42 pH Units (7.32-7.45); ABG PO2 128 mmHg (85-104); ABG TCO2 22 mEq/L (20-26); Blood Gas VT 400 cc
[2021-06-11] MEDS: Artificial Tears SOLN 15 ML BOTTLE BOTH EYES SCH ×2 (16:00→20:24)
[2021-06-11 17:34] LABS: ABG Base Excess -9 mEq/L (-2 to 3); ABG HCO3 17 mEq/L (21-27); ABG Oxygen Saturation 99 % (95-98); ABG PCO2 38 mmHg (35-45); ABG PH 7.27 pH Units (7.32-7.45); ABG PO2 140 mmHg (85-104); ABG TCO2 18 mEq/L (20-26); Blood Gas VT 420 cc
[2021-06-11 17:58] LABS: VBG HCO3 24 mEq/L (21-27); VBG Ionized Calcium 1.19 mmol/L (1.15-1.35); VBG PCO2 46 mmHg (41-51); VBG PH 7.33 pH Units (7.32-7.42); VBG PO2 36 mmHg (25-50)
[2021-06-11 18:07] LABS: Calcium 9.9 mg/dL (8.6-10.3); Magnesium 2.3 mg/dL (1.6-2.6); Phosphorous 2.6 mg/dL (2.7-4.5); Potassium 3.3 mEq/L (3.5-5.1)
[2021-06-11] MEDS: Norepinephrine 4 MG/254 ML IV.SOLN IVC SCH (18:53)
[2021-06-11] MEDS: Budesonide/Formoterol 160/4.5 1 PUFF INH IH SCH (20:06)
[2021-06-11] MEDS: D5% in 0.45% NACL w KCl 20 MEQ/1,000 ML MLS IVC PRN (20:24)
[2021-06-11] MEDS: Chlorhexidine Rinse 15 ML MOUTHWASH MM SCH (20:30)
[2021-06-11 20:52] LABS: VBG Ionized Calcium 1.11 mmol/L (1.15-1.35)
[2021-06-11 21:15] LABS: Calcium 9.1 mg/dL (8.6-10.3); Magnesium 2.1 mg/dL (1.6-2.6); Phosphorous 3.2 mg/dL (2.7-4.5); Potassium 3.4 mEq/L (3.5-5.1)
[2021-06-12] MEDS: Acetaminophen 325 MG TABLET PO PRN ×2 (00:02→11:43)
[2021-06-12] MEDS: Piperacillin/Tazobactam 3.375 GM in 0.9 % Sodium Chloride Mini Bag 100 ML IVPB SCH ×4 (00:02→23:35)
[2021-06-12] MEDS: Artificial Tears SOLN 15 ML BOTTLE BOTH EYES SCH ×7 (00:12→23:34)
[2021-06-12] MEDS: D5% in 0.45% NACL w KCl 20 MEQ/1,000 ML MLS IVC PRN ×6 (00:45→23:53)
[2021-06-12 02:12] LABS: Calcium 8.5 mg/dL (8.6-10.3); Phosphorous 3.2 mg/dL (2.7-4.5); Potassium 4.4 mEq/L (3.5-5.1)
[2021-06-12] MEDS: FentaNYL (PF) 1,000 MCG/100 ML IV.SOLN IVC SCH ×3 (02:55→22:17)
[2021-06-12 05:08] LABS: ABG Base Excess -5 mEq/L (-2 to 3); ABG HCO3 19 mEq/L (21-27); ABG Oxygen Saturation 99 % (95-98); ABG PCO2 30 mmHg (35-45); ABG PH 7.41 pH Units (7.32-7.45); ABG PO2 142 mmHg (85-104); ABG TCO2 20 mEq/L (20-26); Blood Gas VT 400 cc
[2021-06-12] MEDS ORDERED: Vancomycin 1,250 MG/262.5 ML IV.SOLN IVPB SCH (06:00)
[2021-06-12] MEDS: Dexmedetomidine HCl 400 MCG/100 ML MLS IVC SCH ×3 (06:04→23:39)
[2021-06-12 06:08] LABS: VBG Ionized Calcium 1.13 mmol/L (1.15-1.35)
[2021-06-12 06:13] LABS: Calcium 8.5 mg/dL (8.6-10.3); Potassium 3.8 mEq/L (3.5-5.1)
[2021-06-12] MEDS: Budesonide/Formoterol 160/4.5 1 PUFF INH IH SCH ×2 (07:50→20:18)
[2021-06-12] MEDS: Pantoprazole 40 MG VIAL IVP SCH (08:56)
[2021-06-12] MEDS: Chlorhexidine Rinse 15 ML MOUTHWASH MM SCH ×2 (08:56→20:09)
[2021-06-12] MEDS ORDERED: 0.9 % Sodium Chloride 500 ML ONE (10:15)
[2021-06-12 14:29] LABS: VBG Ionized Calcium 1.13 mmol/L (1.15-1.35)
[2021-06-12] MEDS: *HR* Heparin 5,000 UNIT/ML VIAL SQ SCH ×2 (15:05→20:08)
[2021-06-12 15:06] LABS: Calcium 8.2 mg/dL (8.6-10.3); Magnesium 1.9 mg/dL (1.6-2.6); Phosphorous 2.2 mg/dL (2.7-4.5); Potassium 4.1 mEq/L (3.5-5.1)
[2021-06-12] MEDS ORDERED: *HR* Succinylcholine 200 MG/10 ML VIAL IVP ONE (17:12)
[2021-06-12] MEDS ORDERED: *HR* Etomidate 20 MG/10 ML AMPUL IVP ONE (17:12)
[2021-06-12] MEDS ORDERED: *HR* Propofol 200 MG/20 ML VIAL IVP ONE (17:12)
[2021-06-12] MEDS: *HR* Metoprolol 5 MG/5 ML VIAL IVP PRN (18:14)
[2021-06-12 18:40] LABS: VBG Ionized Calcium 1.14 mmol/L (1.15-1.35)
[2021-06-12 19:07] LABS: Calcium 8.3 mg/dL (8.6-10.3); Magnesium 1.8 mg/dL (1.6-2.6); Phosphorous 2.9 mg/dL (2.7-4.5); Potassium 4.6 mEq/L (3.5-5.1)
[2021-06-12] MEDS: Norepinephrine 4 MG/254 ML IV.SOLN IVC SCH (20:10)
[2021-06-12 20:48] LABS: Magnesium 1.8 mg/dL (1.6-2.6); Phosphorous 2.9 mg/dL (2.7-4.5); Potassium 4.9 mEq/L (3.5-5.1)
[2021-06-12] MEDS ORDERED: Potassium Chloride 40 MEQ/200 ML BAG IVPB PRN (21:18)
[2021-06-12] MEDS ORDERED: Calcium Gluconate 1gm/50mL 1 GM/50 ML BAG IVPB PRN (21:18)
[2021-06-12 23:45] LABS: Basophils % 0.2 %; Hematocrit 35.2 % (35.3-44.9); Immature Granulocytes % 0.5 % (0-4); Lymphocytes # 2.8 K/mcL (0.6-4.6); Lymphocytes % 16.5 %; Mean Corpuscular HGB Conc 31.3 g/dL (31.6-35.5); Mean Corpuscular Hemoglobin 26.8 pg (28.0-33.3); Mean Corpuscular Volume 85.6 fL (83.0-100.0); Mean Platelet Volume 10.2 fL (9.4-12.4); Monocytes # 0.9 K/mcL (0.0-1.3); Monocytes % 5.6 %; Neutrophils # 12.9 K/mcL (1.6-8.9); Platelet Count 237 K/mcL (140-400); Red Blood Count 4.11 M/mcL (3.82-4.97); Red Cell Distribution Width 13.8 % (11.5-14.5); Segmented Neutrophils % 77.2 %; White Blood Count 16.7 K/mcL (4.3-11.1)
[2021-06-13 00:03] LABS: Calcium 7.8 mg/dL (8.6-10.3); Magnesium 1.7 mg/dL (1.6-2.6); Potassium 4.6 mEq/L (3.5-5.1)
[2021-06-13] MEDS: Artificial Tears SOLN 15 ML BOTTLE BOTH EYES SCH ×6 (03:19→23:51)
[2021-06-13] MEDS: D5% in 0.45% NACL w KCl 20 MEQ/1,000 ML MLS IVC PRN ×2 (03:50→08:02)
[2021-06-13 03:57] LABS: Basophils % 0.2 %; Eosinophils % 0.1 %; Hematocrit 34.8 % (35.3-44.9); Hemoglobin 10.9 g/dL (11.5-15.4); Immature Granulocytes % 0.4 % (0-4); Lymphocytes # 2.9 K/mcL (0.6-4.6); Mean Corpuscular HGB Conc 31.3 g/dL (31.6-35.5); Mean Corpuscular Hemoglobin 26.5 pg (28.0-33.3); Mean Corpuscular Volume 84.7 fL (83.0-100.0); Mean Platelet Volume 9.9 fL (9.4-12.4); Monocytes # 1.2 K/mcL (0.0-1.3); Monocytes % 7.3 %; Neutrophils # 11.8 K/mcL (1.6-8.9); Platelet Count 234 K/mcL (140-400); Red Blood Count 4.11 M/mcL (3.82-4.97); Red Cell Distribution Width 13.9 % (11.5-14.5)
[2021-06-13 04:16] LABS: Calcium 8.2 mg/dL (8.6-10.3); Magnesium 2.1 mg/dL (1.6-2.6); Phosphorous 2.1 mg/dL (2.7-4.5); Potassium 4.1 mEq/L (3.5-5.1)
[2021-06-13 04:17] LABS: VBG Ionized Calcium 1.22 mmol/L (1.15-1.35)
[2021-06-13 04:34] LABS: ABG Base Excess -6 mEq/L (-2 to 3); ABG HCO3 19 mEq/L (21-27); ABG Oxygen Saturation 99 % (95-98); ABG PCO2 32 mmHg (35-45); ABG PH 7.38 pH Units (7.32-7.45); ABG PO2 116 mmHg (85-104); ABG TCO2 20 mEq/L (20-26); Blood Gas VT 400 cc
[2021-06-13] MEDS: FentaNYL (PF) 1,000 MCG/100 ML IV.SOLN IVC SCH (05:03)
[2021-06-13] MEDS: *HR* Heparin 5,000 UNIT/ML VIAL SQ SCH ×3 (05:36→22:07)
[2021-06-13] MEDS: Budesonide/Formoterol 160/4.5 1 PUFF INH IH SCH ×2 (07:27→21:14)
[2021-06-13] MEDS: Piperacillin/Tazobactam 3.375 GM in 0.9 % Sodium Chloride Mini Bag 100 ML IVPB SCH ×3 (07:31→23:52)
[2021-06-13] MEDS: Chlorhexidine Rinse 15 ML MOUTHWASH MM SCH ×2 (07:31→19:51)
[2021-06-13] MEDS: Pantoprazole 40 MG VIAL IVP SCH (07:31)
[2021-06-13] MEDS ORDERED: D5% in Water 1,000 ML IVC PRN (07:58)
[2021-06-13] MEDS ORDERED: *HR* Dextrose 50 % in Water (Vial) 50 ML VIAL IVP PRN (07:58)
[2021-06-13] MEDS ORDERED: Dextrose Gel 15 GM/37.5 ML TUBE PO PRN ×2 (07:58)
[2021-06-13] MEDS: Insulin DETEMIR 100 UNIT/ML X5UNITS SUBQ SCH ×2 (09:21→19:51)
[2021-06-13] MEDS ORDERED: *HR* Alteplase (Cathflo) 2 MG VIAL IVP ONE ×2 (10:52→10:58)
[2021-06-13] MEDS ORDERED: Furosemide 40 MG/4 ML VIAL ONE (14:05)
[2021-06-13] MEDS: Furosemide 40 MG/4 ML VIAL IVP SCH ×2 (14:24→19:51)
[2021-06-13] MEDS: Insulin LISPRO 300 UNITS/3 ML VIAL SUBQ SCH ×3 (15:41→23:52)
[2021-06-13] MEDS: Dexmedetomidine HCl 400 MCG/100 ML MLS IVC SCH (19:53)
[2021-06-13] MEDS: Norepinephrine 4 MG/254 ML IV.SOLN IVC SCH (23:51)
[2021-06-14] MEDS: FentaNYL (PF) 1,000 MCG/100 ML IV.SOLN IVC SCH ×2 (02:27→14:35)
[2021-06-14 03:39] LABS: Basophils % 0.4 %; Eosinophils % 0.1 %; Hematocrit 32.7 % (35.3-44.9); Hemoglobin 10.2 g/dL (11.5-15.4); Immature Granulocytes % 0.4 % (0-4); Lymphocytes # 2.2 K/mcL (0.6-4.6); Lymphocytes % 20.3 %; Mean Corpuscular HGB Conc 31.2 g/dL (31.6-35.5); Mean Corpuscular Hemoglobin 26.6 pg (28.0-33.3); Mean Corpuscular Volume 85.2 fL (83.0-100.0); Mean Platelet Volume 9.7 fL (9.4-12.4); Monocytes # 0.6 K/mcL (0.0-1.3); Monocytes % 5.8 %; Neutrophils # 7.9 K/mcL (1.6-8.9); Platelet Count 212 K/mcL (140-400); Red Blood Count 3.84 M/mcL (3.82-4.97); Red Cell Distribution Width 13.9 % (11.5-14.5); White Blood Count 10.8 K/mcL (4.3-11.1)
[2021-06-14 04:01] LABS: Magnesium 1.6 mg/dL (1.6-2.6)
[2021-06-14] MEDS: Artificial Tears SOLN 15 ML BOTTLE BOTH EYES SCH ×6 (04:15→23:32)
[2021-06-14 04:32] LABS: Potassium 4.7 mEq/L (3.5-5.1)
[2021-06-14 04:35] LABS: ABG Base Excess -4 mEq/L (-2 to 3); ABG HCO3 19 mEq/L (21-27); ABG Oxygen Saturation 99 % (95-98); ABG PCO2 29 mmHg (35-45); ABG PH 7.43 pH Units (7.32-7.45); ABG PO2 122 mmHg (85-104); ABG TCO2 20 mEq/L (20-26); Blood Gas VT 400 cc
[2021-06-14 05:00] LABS: Calcium 8.3 mg/dL (8.6-10.3)
[2021-06-14] MEDS: *HR* Heparin 5,000 UNIT/ML VIAL SQ SCH ×3 (05:06→22:33)
[2021-06-14] MEDS: Insulin LISPRO 300 UNITS/3 ML VIAL SUBQ SCH ×4 (05:07→23:40)
[2021-06-14] MEDS: Piperacillin/Tazobactam 3.375 GM in 0.9 % Sodium Chloride Mini Bag 100 ML IVPB SCH ×3 (07:55→23:29)
[2021-06-14] MEDS: *HR* Metoprolol 5 MG/5 ML VIAL IVP PRN (07:58)
[2021-06-14] MEDS: Pantoprazole 40 MG VIAL IVP SCH (07:59)
[2021-06-14] MEDS: Furosemide 40 MG/4 ML VIAL IVP SCH ×2 (08:02→19:59)
[2021-06-14] MEDS: Chlorhexidine Rinse 15 ML MOUTHWASH MM SCH ×2 (08:04→19:59)
[2021-06-14] MEDS: Insulin DETEMIR 100 UNIT/ML X5UNITS SUBQ SCH ×2 (08:28→20:03)
[2021-06-14] MEDS ORDERED: *HR* Dextrose 50 % in Water (Syg) 50 ML SYRINGE IVP PRN (12:30)
[2021-06-14] MEDS: Budesonide/Formoterol 160/4.5 1 PUFF INH IH SCH ×2 (12:58→19:39)
[2021-06-14] MEDS: Dexmedetomidine HCl 400 MCG/100 ML MLS IVC SCH (19:51)
[2021-06-14] MEDS: 0.9 % Sodium Chloride 1,000 ML IVC SCH (19:54)
[2021-06-14] MEDS: Norepinephrine 4 MG/254 ML IV.SOLN IVC SCH (20:00)
[2021-06-15] MEDS: Artificial Tears SOLN 15 ML BOTTLE BOTH EYES SCH ×6 (04:14→23:54)
[2021-06-15] MEDS: Insulin LISPRO 300 UNITS/3 ML VIAL SUBQ SCH ×4 (04:14→23:53)
[2021-06-15 04:19] LABS: ABG Base Excess -2 mEq/L (-2 to 3); ABG HCO3 22 mEq/L (21-27); ABG Oxygen Saturation 98 % (95-98); ABG PCO2 35 mmHg (35-45); ABG PH 7.41 pH Units (7.32-7.45); ABG PO2 106 mmHg (85-104); ABG TCO2 23 mEq/L (20-26); Blood Gas VT 400 cc
[2021-06-15 04:27] LABS: Basophils % 0.4 %; Eosinophils % 0.2 %; Hematocrit 33.8 % (35.3-44.9); Hemoglobin 10.3 g/dL (11.5-15.4); Immature Granulocytes % 0.5 % (0-4); Lymphocytes # 1.9 K/mcL (0.6-4.6); Lymphocytes % 23.1 %; Mean Corpuscular HGB Conc 30.5 g/dL (31.6-35.5); Mean Corpuscular Volume 88.5 fL (83.0-100.0); Mean Platelet Volume 10.5 fL (9.4-12.4); Monocytes # 0.5 K/mcL (0.0-1.3); Monocytes % 5.7 %; Neutrophils # 5.7 K/mcL (1.6-8.9); Platelet Count 213 K/mcL (140-400); Red Blood Count 3.82 M/mcL (3.82-4.97); Segmented Neutrophils % 70.1 %; White Blood Count 8.1 K/mcL (4.3-11.1)
[2021-06-15 04:50] LABS: Calcium 8.6 mg/dL (8.6-10.3); Magnesium 1.8 mg/dL (1.6-2.6); Phosphorous 3.8 mg/dL (2.7-4.5); Potassium 4.6 mEq/L (3.5-5.1)
[2021-06-15] MEDS: *HR* Heparin 5,000 UNIT/ML VIAL SQ SCH ×3 (05:32→20:41)
[2021-06-15] MEDS: Budesonide/Formoterol 160/4.5 1 PUFF INH IH SCH ×2 (07:21→19:43)
[2021-06-15] MEDS: Chlorhexidine Rinse 15 ML MOUTHWASH MM SCH ×2 (07:39→20:42)
[2021-06-15] MEDS: Pantoprazole 40 MG VIAL IVP SCH (07:39)
[2021-06-15] MEDS: Piperacillin/Tazobactam 3.375 GM in 0.9 % Sodium Chloride Mini Bag 100 ML IVPB SCH ×3 (07:39→23:55)
[2021-06-15] MEDS: Insulin DETEMIR 100 UNIT/ML X5UNITS SUBQ SCH ×2 (07:45→20:45)
[2021-06-15] MEDS: Dexmedetomidine HCl 400 MCG/100 ML MLS IVC SCH ×2 (08:13→18:09)
[2021-06-15] MEDS: 0.9 % Sodium Chloride 1,000 ML IVC SCH (10:36)
[2021-06-15] MEDS: *HR* Metoprolol 5 MG/5 ML VIAL IVP PRN (10:53)
[2021-06-15] MEDS ORDERED: *HR* Metoprolol 5 MG/5 ML VIAL IVP ONE ×2 (12:59→13:12)
[2021-06-15] MEDS ORDERED: Furosemide 40 MG/4 ML VIAL ONE (12:59)
[2021-06-15] MEDS ORDERED: Furosemide 40 MG/4 ML VIAL IVP ONE (13:12)
[2021-06-15] MEDS: FentaNYL (PF) 1,000 MCG/100 ML IV.SOLN IVC SCH (15:24)
[2021-06-15] MEDS: Norepinephrine 4 MG/254 ML IV.SOLN IVC SCH (16:50)
[2021-06-15] MEDS: Furosemide 40 MG/4 ML VIAL IVP SCH (20:41)
[2021-06-16] MEDS: Dexmedetomidine HCl 400 MCG/100 ML MLS IVC SCH ×4 (03:29→18:29)
[2021-06-16] MEDS: Artificial Tears SOLN 15 ML BOTTLE BOTH EYES SCH ×6 (03:31→23:30)
[2021-06-16] MEDS: Insulin LISPRO 300 UNITS/3 ML VIAL SUBQ SCH ×4 (03:58→23:29)
[2021-06-16 04:08] LABS: Basophils # 0.1 K/mcL (0.0-0.2); Basophils % 0.4 %; Eosinophils # 0.1 K/mcL (0.0-0.6); Eosinophils % 0.5 %; Hematocrit 38.5 % (35.3-44.9); Hemoglobin 11.8 g/dL (11.5-15.4); Immature Granulocytes % 0.5 % (0-4); Lymphocytes # 4.2 K/mcL (0.6-4.6); Mean Corpuscular HGB Conc 30.6 g/dL (31.6-35.5); Mean Corpuscular Hemoglobin 26.2 pg (28.0-33.3); Mean Corpuscular Volume 85.4 fL (83.0-100.0); Mean Platelet Volume 9.8 fL (9.4-12.4); Monocytes # 1.2 K/mcL (0.0-1.3); Monocytes % 5.6 %; Neutrophils # 15.2 K/mcL (1.6-8.9); Platelet Count 364 K/mcL (140-400); Red Blood Count 4.51 M/mcL (3.82-4.97); Red Cell Distribution Width 13.9 % (11.5-14.5)
[2021-06-16 04:14] LABS: White Blood Count 20.8 K/mcL (4.3-11.1)
[2021-06-16 04:25] LABS: Magnesium 1.7 mg/dL (1.6-2.6); Potassium 3.9 mEq/L (3.5-5.1)
[2021-06-16] MEDS: *HR* Heparin 5,000 UNIT/ML VIAL SQ SCH ×3 (05:27→20:54)
[2021-06-16] MEDS: Chlorhexidine Rinse 15 ML MOUTHWASH MM SCH ×3 (07:35→19:52)
[2021-06-16] MEDS: Pantoprazole 40 MG VIAL IVP SCH (07:35)
[2021-06-16] MEDS: Furosemide 40 MG/4 ML VIAL IVP SCH (07:35)
[2021-06-16] MEDS: Insulin DETEMIR 100 UNIT/ML X5UNITS SUBQ SCH ×2 (07:36→19:55)
[2021-06-16] MEDS: Budesonide/Formoterol 160/4.5 1 PUFF INH IH SCH ×2 (08:43→19:32)
[2021-06-16] MEDS: *HR* Metoprolol 5 MG/5 ML VIAL IVP PRN ×2 (11:28→17:35)
[2021-06-16] MEDS ORDERED: Nitroglycerin 1 INCH/GM PACKET TP SCH (13:00)
[2021-06-16] MEDS ORDERED: Calcium Gluconate 1gm/50mL 1 GM/50 ML BAG IVPB PRN (17:05)
[2021-06-16] MEDS ORDERED: *HR* Dextrose 50 % in Water (Syg) 50 ML SYRINGE IVP PRN (17:05)
[2021-06-16] MEDS ORDERED: D5% in Water 1,000 ML IVC PRN (17:05)
[2021-06-16] MEDS ORDERED: Dextrose Gel 15 GM/37.5 ML TUBE PO PRN ×2 (17:05)
[2021-06-16] MEDS ORDERED: Naloxone 0.4 MG/ML INJ IVP PRN (17:05)
[2021-06-16] MEDS ORDERED: Ondansetron 4 MG/2 ML VIAL IVP PRN (17:05)
[2021-06-16] MEDS ORDERED: Potassium Chloride 40 MEQ/200 ML BAG IVPB PRN (17:05)
[2021-06-16] MEDS ORDERED: Artificial Tears SOLN 15 ML BOTTLE BOTH EYES PRN (17:05)
[2021-06-16] MEDS ORDERED: Acetaminophen 325 MG TABLET PO PRN (17:05)
[2021-06-16] MEDS ORDERED: D5% in 0.45% NACL w KCl 20 MEQ/1,000 ML MLS IVC PRN (17:05)
[2021-06-16] MEDS ORDERED: *HR* Metoprolol 5 MG/5 ML VIAL IVP ONE (17:09)
[2021-06-16] MEDS: FentaNYL (PF) 1,000 MCG/100 ML IV.SOLN IVC SCH (17:28)
[2021-06-16] MEDS ORDERED: Piperacillin/Tazobactam 3.375 GM in 0.9 % Sodium Chloride Mini Bag 100 ML IVPB SCH (18:00)
[2021-06-16] MEDS: Piperacillin/Tazobactam 3.375 GM in 0.9 % Sodium Chloride Mini Bag 100 ML IVPB SCH (18:21)
[2021-06-16] MEDS: Albumin Human 5% 12.5 GM/250 ML IV.SOLN IVC SCH (19:51)
[2021-06-16] MEDS ORDERED: Furosemide 40 MG/4 ML VIAL IVP SCH (21:00)
[2021-06-17] MEDS: Albumin Human 5% 12.5 GM/250 ML IV.SOLN IVC SCH (00:08)
[2021-06-17] MEDS: Piperacillin/Tazobactam 3.375 GM in 0.9 % Sodium Chloride Mini Bag 100 ML IVPB SCH ×3 (02:49→17:10)
[2021-06-17] MEDS: Dexmedetomidine HCl 400 MCG/100 ML MLS IVC SCH ×3 (04:02→19:44)
[2021-06-17] MEDS: *HR* Heparin 5,000 UNIT/ML VIAL SQ SCH ×3 (04:49→21:18)
[2021-06-17] MEDS: Artificial Tears SOLN 15 ML BOTTLE BOTH EYES SCH ×5 (04:50→19:45)
[2021-06-17 05:52] LABS: Basophils % 0.2 %; Eosinophils # 0.1 K/mcL (0.0-0.6); Eosinophils % 0.5 %; Hematocrit 33.1 % (35.3-44.9); Immature Granulocytes % 0.4 % (0-4); Lymphocytes # 1.9 K/mcL (0.6-4.6); Lymphocytes % 13.2 %; Mean Corpuscular HGB Conc 30.8 g/dL (31.6-35.5); Mean Corpuscular Hemoglobin 26.2 pg (28.0-33.3); Mean Corpuscular Volume 84.9 fL (83.0-100.0); Monocytes # 0.7 K/mcL (0.0-1.3); Monocytes % 5.2 %; Neutrophils # 11.3 K/mcL (1.6-8.9); Platelet Count 288 K/mcL (140-400); Segmented Neutrophils % 80.5 %
[2021-06-17 05:58] LABS: Hemoglobin 10.2 g/dL (11.5-15.4)
[2021-06-17] MEDS: *HR* Metoprolol 5 MG/5 ML VIAL IVP PRN ×3 (06:02→17:25)
[2021-06-17] MEDS: Insulin LISPRO 300 UNITS/3 ML VIAL SUBQ SCH ×3 (06:23→17:26)
[2021-06-17 06:24] LABS: Albumin 3.8 g/dL (3.5-5.7); Albumin/Globulin Ratio 1.1 (1.1-2.2); Bilirubin,Total 0.5 mg/dL (0.3-1.0); Globulin 3.5 g/dL (2.4-3.5); Magnesium 1.6 mg/dL (1.6-2.6); Potassium 3.7 mEq/L (3.5-5.1); Total Protein 7.3 g/dL (6.4-8.9)
[2021-06-17] MEDS: Nitroglycerin 1 INCH/GM PACKET TP SCH ×2 (06:26→11:44)
[2021-06-17] MEDS: Budesonide/Formoterol 160/4.5 1 PUFF INH IH SCH ×2 (08:43→19:57)
[2021-06-17] MEDS: Pantoprazole 40 MG VIAL IVP SCH (09:17)
[2021-06-17] MEDS: Insulin DETEMIR 100 UNIT/ML X5UNITS SUBQ SCH ×2 (09:19→21:19)
[2021-06-17 18:20] LABS: Creatinine,Urine 137 mg/dL
[2021-06-17] MEDS: Chlorhexidine Rinse 15 ML MOUTHWASH MM SCH (19:45)
[2021-06-17] MEDS ORDERED: Acetaminophen IV 1,000 MG/100 ML BAG IVPB ONE (22:45)
[2021-06-18] MEDS: Insulin LISPRO 300 UNITS/3 ML VIAL SUBQ SCH ×4 (00:10→17:42)
[2021-06-18] MEDS: Artificial Tears SOLN 15 ML BOTTLE BOTH EYES SCH ×6 (00:10→21:30)
[2021-06-18] MEDS: *HR* Metoprolol 5 MG/5 ML VIAL IVP PRN ×3 (00:36→17:59)
[2021-06-18] MEDS: Piperacillin/Tazobactam 3.375 GM in 0.9 % Sodium Chloride Mini Bag 100 ML IVPB SCH ×3 (03:05→17:36)
[2021-06-18] MEDS: FentaNYL (PF) 1,000 MCG/100 ML IV.SOLN IVC SCH ×2 (04:49→17:42)
[2021-06-18 05:23] LABS: Basophils # 0.1 K/mcL (0.0-0.2); Basophils % 0.3 %; Eosinophils # 0.1 K/mcL (0.0-0.6); Eosinophils % 0.7 %; Hematocrit 33.1 % (35.3-44.9); Hemoglobin 10.5 g/dL (11.5-15.4); Immature Granulocytes % 0.5 % (0-4); Lymphocytes # 1.6 K/mcL (0.6-4.6); Lymphocytes % 10.8 %; Mean Corpuscular HGB Conc 31.7 g/dL (31.6-35.5); Mean Corpuscular Hemoglobin 26.9 pg (28.0-33.3); Mean Corpuscular Volume 84.9 fL (83.0-100.0); Mean Platelet Volume 9.7 fL (9.4-12.4); Monocytes % 6.8 %; Neutrophils # 12.1 K/mcL (1.6-8.9); Platelet Count 353 K/mcL (140-400); Red Cell Distribution Width 14.3 % (11.5-14.5); Segmented Neutrophils % 80.9 %
[2021-06-18 05:41] LABS: Calcium 8.9 mg/dL (8.6-10.3); Potassium 3.2 mEq/L (3.5-5.1)
[2021-06-18] MEDS: *HR* Heparin 5,000 UNIT/ML VIAL SQ SCH ×3 (06:08→21:29)
[2021-06-18] MEDS: Dexmedetomidine HCl 400 MCG/100 ML MLS IVC SCH ×3 (07:00→21:29)
[2021-06-18] MEDS: Pantoprazole 40 MG VIAL IVP SCH (07:57)
[2021-06-18] MEDS: Chlorhexidine Rinse 15 ML MOUTHWASH MM SCH ×2 (07:58→19:22)
[2021-06-18] MEDS: Insulin DETEMIR 100 UNIT/ML X5UNITS SUBQ SCH ×2 (08:05→21:30)
[2021-06-18] MEDS: Budesonide/Formoterol 160/4.5 1 PUFF INH IH SCH ×2 (10:59→20:40)
[2021-06-18 11:39] LABS: ABG Base Excess 2 mEq/L (-2 to 3); ABG HCO3 26 mEq/L (21-27); ABG Oxygen Saturation 95 % (95-98); ABG PCO2 41 mmHg (35-45); ABG PH 7.42 pH Units (7.32-7.45); ABG PO2 73 mmHg (85-104); ABG TCO2 28 mEq/L (20-26); Blood Gas VT 500 cc
[2021-06-18 15:50] LABS: Uric Acid 7.6 mg/dL (2.3-7.6)
[2021-06-18] MEDS ORDERED: methylPREDNISolone 125 MG/2 ML VIAL IVP SCH (16:00)
[2021-06-18] MEDS: methylPREDNISolone 125 MG/2 ML VIAL IVP SCH (21:29)
[2021-06-18] MEDS ORDERED: Morphine Sulfate 2 MG/ML SYRINGE IVP PRN (21:38)
[2021-06-18 23:18] LABS: Protein/Creatinine Ratio,Urine 0.87 mg/mg (0.00-0.20)
[2021-06-19] MEDS: Insulin LISPRO 300 UNITS/3 ML VIAL SUBQ SCH ×4 (00:37→17:51)
[2021-06-19] MEDS: Artificial Tears SOLN 15 ML BOTTLE BOTH EYES SCH ×6 (00:37→20:17)
[2021-06-19] MEDS: Dexmedetomidine HCl 400 MCG/100 ML MLS IVC SCH ×5 (03:30→20:50)
[2021-06-19] MEDS: Piperacillin/Tazobactam 3.375 GM in 0.9 % Sodium Chloride Mini Bag 100 ML IVPB SCH ×3 (03:30→17:48)
[2021-06-19 03:33] LABS: Basophils % 0.1 %; Hematocrit 32.2 % (35.3-44.9); Immature Granulocytes % 0.7 % (0-4); Lymphocytes # 0.7 K/mcL (0.6-4.6); Mean Corpuscular HGB Conc 31.1 g/dL (31.6-35.5); Mean Corpuscular Hemoglobin 26.7 pg (28.0-33.3); Mean Corpuscular Volume 85.9 fL (83.0-100.0); Mean Platelet Volume 10.4 fL (9.4-12.4); Monocytes # 0.1 K/mcL (0.0-1.3); Monocytes % 0.9 %; Neutrophils # 6.6 K/mcL (1.6-8.9); Platelet Count 306 K/mcL (140-400); Red Blood Count 3.75 M/mcL (3.82-4.97); Red Cell Distribution Width 14.5 % (11.5-14.5); Segmented Neutrophils % 89.3 %
[2021-06-19 03:35] LABS: Calcium 8.5 mg/dL (8.6-10.3); Potassium 3.9 mEq/L (3.5-5.1)
[2021-06-19 03:40] LABS: White Blood Count 7.4 K/mcL (4.3-11.1)
[2021-06-19 04:47] LABS: Platelet Estimate Normal (Normal)
[2021-06-19] MEDS: methylPREDNISolone 125 MG/2 ML VIAL IVP SCH ×3 (05:54→20:16)
[2021-06-19] MEDS: *HR* Heparin 5,000 UNIT/ML VIAL SQ SCH ×3 (05:55→20:16)
[2021-06-19] MEDS: Pantoprazole 40 MG VIAL IVP SCH (07:35)
[2021-06-19] MEDS: Chlorhexidine Rinse 15 ML MOUTHWASH MM SCH ×2 (07:35→20:11)
[2021-06-19] MEDS: Insulin DETEMIR 100 UNIT/ML X5UNITS SUBQ SCH ×2 (07:38→20:15)
[2021-06-19] MEDS: Budesonide/Formoterol 160/4.5 1 PUFF INH IH SCH ×2 (07:59→20:17)
[2021-06-19] MEDS ORDERED: Insulin DETEMIR 100 UNIT/ML X5UNITS SUBQ ONE (09:15)
[2021-06-20] MEDS: Artificial Tears SOLN 15 ML BOTTLE BOTH EYES SCH ×6 (00:10→19:59)
[2021-06-20] MEDS: Insulin LISPRO 300 UNITS/3 ML VIAL SUBQ SCH ×4 (00:11→17:21)
[2021-06-20] MEDS: Piperacillin/Tazobactam 3.375 GM in 0.9 % Sodium Chloride Mini Bag 100 ML IVPB SCH ×3 (02:28→17:20)
[2021-06-20] MEDS: Dexmedetomidine HCl 400 MCG/100 ML MLS IVC SCH ×2 (02:56→08:30)
[2021-06-20] MEDS: methylPREDNISolone 125 MG/2 ML VIAL IVP SCH ×3 (05:09→20:20)
[2021-06-20] MEDS: *HR* Heparin 5,000 UNIT/ML VIAL SQ SCH ×3 (05:10→20:21)
[2021-06-20 05:43] LABS: Basophils % 0.1 %; Hematocrit 34.9 % (35.3-44.9); Hemoglobin 10.4 g/dL (11.5-15.4); Immature Granulocytes % 0.5 % (0-4); Lymphocytes # 0.9 K/mcL (0.6-4.6); Lymphocytes % 10.3 %; Mean Corpuscular HGB Conc 29.8 g/dL (31.6-35.5); Mean Corpuscular Hemoglobin 26.1 pg (28.0-33.3); Mean Corpuscular Volume 87.5 fL (83.0-100.0); Mean Platelet Volume 9.7 fL (9.4-12.4); Monocytes # 0.4 K/mcL (0.0-1.3); Monocytes % 4.6 %; Neutrophils # 7.4 K/mcL (1.6-8.9); Platelet Count 369 K/mcL (140-400); Red Blood Count 3.99 M/mcL (3.82-4.97); Red Cell Distribution Width 14.2 % (11.5-14.5); Segmented Neutrophils % 84.5 %; White Blood Count 8.7 K/mcL (4.3-11.1)
[2021-06-20 05:59] LABS: Calcium 8.8 mg/dL (8.6-10.3); Potassium 3.6 mEq/L (3.5-5.1)
[2021-06-20] MEDS: Chlorhexidine Rinse 15 ML MOUTHWASH MM SCH ×2 (08:09→20:19)
[2021-06-20] MEDS: Insulin DETEMIR 100 UNIT/ML X5UNITS SUBQ SCH ×2 (08:12→23:02)
[2021-06-20] MEDS: Pantoprazole 40 MG VIAL IVP SCH (08:12)
[2021-06-20] MEDS: Budesonide/Formoterol 160/4.5 1 PUFF INH IH SCH ×2 (10:39→20:21)
[2021-06-20] MEDS ORDERED: hydrALAZINE 10 MG TABLET PO PRN (13:57)
[2021-06-20] MEDS: *HR* Metoprolol 5 MG/5 ML VIAL IVP PRN ×2 (15:40→23:02)
[2021-06-21] MEDS ORDERED: *HR* LORazepam 2 MG/ML VIAL IVP ONE (01:13)
[2021-06-21] MEDS: Insulin LISPRO 300 UNITS/3 ML VIAL SUBQ SCH ×5 (01:25→21:57)
[2021-06-21] MEDS: Artificial Tears SOLN 15 ML BOTTLE BOTH EYES SCH ×6 (01:27→21:51)
[2021-06-21] MEDS: Piperacillin/Tazobactam 3.375 GM in 0.9 % Sodium Chloride Mini Bag 100 ML IVPB SCH ×3 (02:38→17:28)
[2021-06-21] MEDS: *HR* Labetalol 20 MG/4 ML SYRINGE IVP PRN ×3 (05:23→22:04)
[2021-06-21] MEDS: *HR* Heparin 5,000 UNIT/ML VIAL SQ SCH ×3 (05:23→21:52)
[2021-06-21] MEDS: methylPREDNISolone 125 MG/2 ML VIAL IVP SCH ×3 (05:24→21:52)
[2021-06-21] MEDS: *HR* Metoprolol 5 MG/5 ML VIAL IVP PRN ×2 (06:39→17:36)
[2021-06-21] MEDS: Pantoprazole 40 MG VIAL IVP SCH (08:12)
[2021-06-21] MEDS: Insulin DETEMIR 100 UNIT/ML X5UNITS SUBQ SCH ×2 (08:13→21:59)
[2021-06-21] MEDS: Chlorhexidine Rinse 15 ML MOUTHWASH MM SCH ×2 (08:23→21:52)
[2021-06-21] MEDS: Budesonide/Formoterol 160/4.5 1 PUFF INH IH SCH ×2 (10:11→20:36)
[2021-06-21 11:00] LABS: Calcium 9.1 mg/dL (8.6-10.3); Potassium 3.8 mEq/L (3.5-5.1)
[2021-06-21 11:24] LABS: Hematocrit 41.3 % (35.3-44.9); Hemoglobin 12.5 g/dL (11.5-15.4); Mean Corpuscular HGB Conc 30.3 g/dL (31.6-35.5); Mean Corpuscular Hemoglobin 26.7 pg (28.0-33.3); Mean Platelet Volume 9.4 fL (9.4-12.4); Platelet Count 515 K/mcL (140-400); Red Blood Count 4.69 M/mcL (3.82-4.97); Red Cell Distribution Width 14.3 % (11.5-14.5); White Blood Count 8.4 K/mcL (4.3-11.1)
[2021-06-21 11:31] LABS: Mean Corpuscular Volume 88.1 fL (83.0-100.0)
[2021-06-21 11:44] LABS: Calcium 9.7 mg/dL (8.6-10.3); Potassium 3.8 mEq/L (3.5-5.1)
[2021-06-21] MEDS ORDERED: Ringers Solution, Lactated 1,000 ML IVC SCH (12:30)
[2021-06-21 12:59] LABS: Magnesium 2.2 mg/dL (1.6-2.6); Phosphorous 3.5 mg/dL (2.7-4.5)
[2021-06-21] MEDS ORDERED: D5% in Water 1,000 ML IVC SCH (14:15)
[2021-06-21] MEDS ORDERED: D10% in Water 500 ML IVC PRN (16:00)
[2021-06-21] MEDS ORDERED: Clinimix E 5%-15% SOLUTION 2,000 ML with MVI, adult with vitamin K 10 ML IVC SCH (17:00)
[2021-06-22] MEDS: Insulin LISPRO 300 UNITS/3 ML VIAL SUBQ SCH ×7 (00:43→23:59)
[2021-06-22] MEDS: *HR* Labetalol 20 MG/4 ML SYRINGE IVP PRN ×3 (00:44→23:58)
[2021-06-22] MEDS: Artificial Tears SOLN 15 ML BOTTLE BOTH EYES SCH ×7 (00:48→23:58)
[2021-06-22] MEDS: Piperacillin/Tazobactam 3.375 GM in 0.9 % Sodium Chloride Mini Bag 100 ML IVPB SCH ×3 (01:40→17:25)
[2021-06-22 03:52] LABS: Calcium 9.4 mg/dL (8.6-10.3); Magnesium 2.3 mg/dL (1.6-2.6); Phosphorous 3.1 mg/dL (2.7-4.5); Potassium 4.3 mEq/L (3.5-5.1)
[2021-06-22 04:00] LABS: Basophils % 0.1 %; Hematocrit 41.5 % (35.3-44.9); Hemoglobin 12.4 g/dL (11.5-15.4); Immature Granulocytes % 0.6 % (0-4); Lymphocytes # 0.6 K/mcL (0.6-4.6); Lymphocytes % 8.4 %; Mean Corpuscular HGB Conc 29.9 g/dL (31.6-35.5); Mean Corpuscular Hemoglobin 26.8 pg (28.0-33.3); Mean Corpuscular Volume 89.6 fL (83.0-100.0); Mean Platelet Volume 9.5 fL (9.4-12.4); Monocytes # 0.4 K/mcL (0.0-1.3); Monocytes % 5.2 %; Neutrophils # 5.9 K/mcL (1.6-8.9); Platelet Count 375 K/mcL (140-400); Red Blood Count 4.63 M/mcL (3.82-4.97); Red Cell Distribution Width 14.5 % (11.5-14.5); Segmented Neutrophils % 85.7 %; White Blood Count 6.9 K/mcL (4.3-11.1)
[2021-06-22] MEDS: methylPREDNISolone 125 MG/2 ML VIAL IVP SCH ×3 (05:16→20:26)
[2021-06-22] MEDS: *HR* Heparin 5,000 UNIT/ML VIAL SQ SCH ×3 (05:17→20:27)
[2021-06-22] MEDS ORDERED: Ringers Solution, Lactated 1,000 ML IVC SCH (08:15)
[2021-06-22] MEDS ORDERED: *HR* LORazepam 2 MG/ML VIAL IVP ONE (08:29)
[2021-06-22] MEDS: Pantoprazole 40 MG VIAL IVP SCH (08:53)
[2021-06-22] MEDS: Chlorhexidine Rinse 15 ML MOUTHWASH MM SCH ×2 (08:54→20:26)
[2021-06-22] MEDS: Budesonide/Formoterol 160/4.5 1 PUFF INH IH SCH ×2 (09:14→20:27)
[2021-06-22] MEDS: Insulin DETEMIR 100 UNIT/ML X5UNITS SUBQ SCH ×2 (09:16→20:28)
[2021-06-22] MEDS ORDERED: Insulin DETEMIR 100 UNIT/ML X5UNITS SUBQ ONE (09:24)
[2021-06-22] MEDS ORDERED: D5% in Water 1,000 ML IVC SCH (12:45)
[2021-06-22] MEDS ORDERED: Clinimix E 5%-15% SOLUTION 2,000 ML with MVI, adult with vitamin K 10 ML IVC SCH (17:00)
[2021-06-22] MEDS: FentaNYL (PF) 1,000 MCG/100 ML IV.SOLN IVC SCH (19:33)
[2021-06-22] MEDS: *HR* Metoprolol 5 MG/5 ML VIAL IVP PRN (20:28)
[2021-06-23] MEDS: *HR* Labetalol 20 MG/4 ML SYRINGE IVP PRN (01:06)
[2021-06-23] MEDS: Piperacillin/Tazobactam 3.375 GM in 0.9 % Sodium Chloride Mini Bag 100 ML IVPB SCH ×3 (01:08→22:52)
[2021-06-23 02:58] LABS: Calcium 9.2 mg/dL (8.6-10.3); Magnesium 2.2 mg/dL (1.6-2.6); Phosphorous 3.3 mg/dL (2.7-4.5); Potassium 3.8 mEq/L (3.5-5.1)
[2021-06-23] MEDS: *HR* Heparin 5,000 UNIT/ML VIAL SQ SCH ×3 (04:23→21:24)
[2021-06-23] MEDS: Artificial Tears SOLN 15 ML BOTTLE BOTH EYES SCH ×5 (04:24→19:41)
[2021-06-23] MEDS: methylPREDNISolone 125 MG/2 ML VIAL IVP SCH ×3 (04:25→19:44)
[2021-06-23] MEDS: Insulin LISPRO 300 UNITS/3 ML VIAL SUBQ SCH ×5 (04:25→19:54)
[2021-06-23] MEDS ORDERED: Lidocaine/EPI 1:100k 1% 50 ML VIAL ONE (05:11)
[2021-06-23] MEDS ORDERED: *HR* FentaNYL (PF) 100 MCG/2 ML VIAL ONE (07:13)
[2021-06-23] MEDS ORDERED: *HR* Propofol 200 MG/20 ML VIAL IVP ONE (07:13)
[2021-06-23] MEDS ORDERED: Ondansetron 4 MG/2 ML VIAL ONE (07:15)
[2021-06-23] MEDS ORDERED: Lidocaine HCL 4 ML Topical Solution (Laryng-O-Jet Kit Sterile Pak) TP ONE (07:15)
[2021-06-23] MEDS ORDERED: *HR* Succinylcholine 200 MG/10 ML VIAL IVP ONE (07:15)
[2021-06-23] MEDS ORDERED: Lidocaine -MPF 2% 2 ML VIAL ONE (07:15)
[2021-06-23] MEDS ORDERED: *HR* Rocuronium Bromide 50 MG/5 ML VIAL ONE ×3 (07:15→10:18)
[2021-06-23] MEDS: Budesonide/Formoterol 160/4.5 1 PUFF INH IH SCH ×2 (08:00→21:30)
[2021-06-23] MEDS ORDERED: *HR* Phenylephrine 10 MG/ML VIAL ONE (09:10)
[2021-06-23] MEDS ORDERED: *HR* Vasopressin 20 UNIT/ML VIAL ONE (09:19)
[2021-06-23] MEDS ORDERED: D5% in Water 1,000 ML IVC SCH (11:30)
[2021-06-23] MEDS: Pantoprazole 40 MG VIAL IVP SCH (14:37)
[2021-06-23] MEDS: Chlorhexidine Rinse 15 ML MOUTHWASH MM SCH ×2 (14:38→19:44)
[2021-06-23] MEDS ORDERED: Insulin LISPRO 300 UNITS/3 ML VIAL SUBQ ONE ×2 (15:13→18:07)
[2021-06-23] MEDS: Insulin DETEMIR 100 UNIT/ML X5UNITS SUBQ SCH ×2 (15:28→19:54)
[2021-06-23] MEDS ORDERED: Clinimix E 5%-15% SOLUTION 2,000 ML with MVI, adult with vitamin K 10 ML IVC SCH (17:00)
[2021-06-23 21:20] LABS: Calcium 8.5 mg/dL (8.6-10.3); Potassium 4.2 mEq/L (3.5-5.1)
[2021-06-24] MEDS: Artificial Tears SOLN 15 ML BOTTLE BOTH EYES SCH ×6 (00:43→20:41)
[2021-06-24] MEDS: methylPREDNISolone 125 MG/2 ML VIAL IVP SCH ×3 (06:18→20:40)
[2021-06-24] MEDS: *HR* Heparin 5,000 UNIT/ML VIAL SQ SCH ×2 (06:18→14:45)
[2021-06-24] MEDS: Piperacillin/Tazobactam 3.375 GM in 0.9 % Sodium Chloride Mini Bag 100 ML IVPB SCH ×2 (06:18→14:44)
[2021-06-24 08:04] LABS: Calcium 8.9 mg/dL (8.6-10.3); Magnesium 2.1 mg/dL (1.6-2.6); Phosphorous 3.2 mg/dL (2.7-4.5); Potassium 3.6 mEq/L (3.5-5.1)
[2021-06-24] MEDS: Chlorhexidine Rinse 15 ML MOUTHWASH MM SCH ×2 (09:43→20:40)
[2021-06-24] MEDS: *HR* Labetalol 20 MG/4 ML SYRINGE IVP PRN (09:43)
[2021-06-24] MEDS: Pantoprazole 40 MG VIAL IVP SCH (09:43)
[2021-06-24 10:07] LABS: Basophils % 0.1 %; Hematocrit 40.2 % (35.3-44.9); Hemoglobin 11.8 g/dL (11.5-15.4); Immature Granulocytes % 0.8 % (0-4); Lymphocytes % 6.4 %; Mean Corpuscular HGB Conc 29.4 g/dL (31.6-35.5); Mean Corpuscular Hemoglobin 26.3 pg (28.0-33.3); Mean Corpuscular Volume 89.5 fL (83.0-100.0); Mean Platelet Volume 10.4 fL (9.4-12.4); Monocytes # 0.7 K/mcL (0.0-1.3); Monocytes % 4.9 %; Nucleated Red Blood Cells 0.1 /100 WBC (0); Platelet Count 257 K/mcL (140-400); Red Blood Count 4.49 M/mcL (3.82-4.97); Red Cell Distribution Width 14.4 % (11.5-14.5); Segmented Neutrophils % 87.8 %
[2021-06-24 10:08] LABS: Neutrophils # 13.4 K/mcL (1.6-8.9); White Blood Count 15.2 K/mcL (4.3-11.1)
[2021-06-24] MEDS: Budesonide/Formoterol 160/4.5 1 PUFF INH IH SCH ×2 (10:21→19:51)
[2021-06-24] MEDS: D5% in Water 1,000 ML IVC SCH (14:38)
[2021-06-24] MEDS ORDERED: Clinimix E 5%-15% SOLUTION 2,000 ML with MVI, adult with vitamin K 10 ML IVC SCH (17:00)
[2021-06-24] MEDS ORDERED: *HR* Alteplase (Cathflo) 2 MG VIAL IVP ONE (18:36)
[2021-06-25] MEDS: Piperacillin/Tazobactam 3.375 GM in 0.9 % Sodium Chloride Mini Bag 100 ML IVPB SCH ×4 (00:56→20:30)
[2021-06-25] MEDS: *HR* Heparin 5,000 UNIT/ML VIAL SQ SCH ×4 (00:56→20:30)
[2021-06-25] MEDS: Artificial Tears SOLN 15 ML BOTTLE BOTH EYES SCH ×7 (01:08→23:17)
[2021-06-25 01:27] LABS: Basophils % 0.1 %; Hematocrit 35.5 % (35.3-44.9); Hemoglobin 10.5 g/dL (11.5-15.4); Lymphocytes # 0.7 K/mcL (0.6-4.6); Lymphocytes % 5.2 %; Mean Corpuscular HGB Conc 29.6 g/dL (31.6-35.5); Mean Corpuscular Hemoglobin 26.1 pg (28.0-33.3); Mean Corpuscular Volume 88.3 fL (83.0-100.0); Monocytes # 0.9 K/mcL (0.0-1.3); Monocytes % 6.5 %; Neutrophils # 12.1 K/mcL (1.6-8.9); Platelet Count 208 K/mcL (140-400); Red Blood Count 4.02 M/mcL (3.82-4.97); Red Cell Distribution Width 14.3 % (11.5-14.5); Segmented Neutrophils % 87.2 %; White Blood Count 13.9 K/mcL (4.3-11.1)
[2021-06-25 01:42] LABS: Calcium 8.4 mg/dL (8.6-10.3); Magnesium 2.3 mg/dL (1.6-2.6); Phosphorous 3.7 mg/dL (2.7-4.5); Potassium 4.3 mEq/L (3.5-5.1)
[2021-06-25] MEDS: D5% in Water 1,000 ML IVC SCH ×2 (02:46→12:37)
[2021-06-25] MEDS: methylPREDNISolone 125 MG/2 ML VIAL IVP SCH ×3 (05:41→20:30)
[2021-06-25] MEDS: Budesonide/Formoterol 160/4.5 1 PUFF INH IH SCH ×2 (08:02→19:47)
[2021-06-25] MEDS: Chlorhexidine Rinse 15 ML MOUTHWASH MM SCH ×2 (08:14→20:30)
[2021-06-25] MEDS: Pantoprazole 40 MG VIAL IVP SCH (08:14)
[2021-06-25] MEDS: *HR* Labetalol 20 MG/4 ML SYRINGE IVP PRN ×3 (08:38→22:20)
[2021-06-25] MEDS ORDERED: Clinimix E 5%-15% SOLUTION 2,000 ML with MVI, adult with vitamin K 10 ML IVC SCH (17:00)
[2021-06-26] MEDS: *HR* Labetalol 20 MG/4 ML SYRINGE IVP PRN (00:11)
[2021-06-26] MEDS: Artificial Tears SOLN 15 ML BOTTLE BOTH EYES SCH ×5 (04:00→21:00)
[2021-06-26 04:16] LABS: Calcium 8.2 mg/dL (8.6-10.3); Magnesium 2.2 mg/dL (1.6-2.6); Phosphorous 3.4 mg/dL (2.7-4.5); Potassium 3.8 mEq/L (3.5-5.1)
[2021-06-26] MEDS: methylPREDNISolone 125 MG/2 ML VIAL IVP SCH ×3 (06:19→21:33)
[2021-06-26] MEDS: *HR* Heparin 5,000 UNIT/ML VIAL SQ SCH ×3 (06:19→21:33)
[2021-06-26] MEDS: Piperacillin/Tazobactam 3.375 GM in 0.9 % Sodium Chloride Mini Bag 100 ML IVPB SCH (06:19)
[2021-06-26] MEDS: Budesonide/Formoterol 160/4.5 1 PUFF INH IH SCH ×2 (07:35→19:48)
[2021-06-26] MEDS: Pantoprazole 40 MG VIAL IVP SCH (08:16)
[2021-06-26] MEDS: Chlorhexidine Rinse 15 ML MOUTHWASH MM SCH ×2 (08:17→21:33)
[2021-06-26] MEDS ORDERED: Insulin DETEMIR 100 UNIT/ML X5UNITS SUBQ ONE (12:03)
[2021-06-26 14:16] LABS: Basophils % 0.1 %; Hematocrit 34.1 % (35.3-44.9); Hemoglobin 10.3 g/dL (11.5-15.4); Immature Granulocytes % 1.6 % (0-4); Lymphocytes # 0.6 K/mcL (0.6-4.6); Lymphocytes % 3.6 %; Mean Corpuscular HGB Conc 30.2 g/dL (31.6-35.5); Mean Corpuscular Hemoglobin 26.1 pg (28.0-33.3); Mean Corpuscular Volume 86.3 fL (83.0-100.0); Mean Platelet Volume 11.5 fL (9.4-12.4); Monocytes # 0.6 K/mcL (0.0-1.3); Monocytes % 3.7 %; Neutrophils # 15.3 K/mcL (1.6-8.9); Platelet Count 179 K/mcL (140-400); Red Blood Count 3.95 M/mcL (3.82-4.97); Red Cell Distribution Width 13.8 % (11.5-14.5); White Blood Count 16.8 K/mcL (4.3-11.1)
[2021-06-26] MEDS: Insulin LISPRO 300 UNITS/3 ML VIAL SUBQ SCH (16:56)
[2021-06-26] MEDS ORDERED: Clinimix E 5%-15% SOLUTION 2,000 ML with MVI, adult with vitamin K 10 ML IVC SCH (17:00)
[2021-06-26] MEDS ORDERED: Insulin DETEMIR 100 UNIT/ML X5UNITS SUBQ SCH (21:00)
[2021-06-27] MEDS: Artificial Tears SOLN 15 ML BOTTLE BOTH EYES SCH ×6 (00:14→20:05)
[2021-06-27] MEDS: Insulin LISPRO 300 UNITS/3 ML VIAL SUBQ SCH ×6 (00:15→20:57)
[2021-06-27] MEDS: *HR* Labetalol 20 MG/4 ML SYRINGE IVP PRN ×2 (00:19→22:17)
[2021-06-27 05:46] LABS: Basophils % 0.1 %; Hematocrit 32.3 % (35.3-44.9); Hemoglobin 9.7 g/dL (11.5-15.4); Immature Granulocytes % 0.9 % (0-4); Lymphocytes # 0.4 K/mcL (0.6-4.6); Lymphocytes % 3.1 %; Mean Corpuscular Hemoglobin 26.3 pg (28.0-33.3); Mean Corpuscular Volume 87.5 fL (83.0-100.0); Mean Platelet Volume 12.2 fL (9.4-12.4); Monocytes # 0.6 K/mcL (0.0-1.3); Monocytes % 4.1 %; Neutrophils # 12.7 K/mcL (1.6-8.9); Platelet Count 180 K/mcL (140-400); Red Blood Count 3.69 M/mcL (3.82-4.97); Red Cell Distribution Width 13.9 % (11.5-14.5); Segmented Neutrophils % 91.8 %; White Blood Count 13.8 K/mcL (4.3-11.1)
[2021-06-27 05:58] LABS: Calcium 8.4 mg/dL (8.6-10.3); Magnesium 2.4 mg/dL (1.6-2.6); Phosphorous 4.7 mg/dL (2.7-4.5); Potassium 4.9 mEq/L (3.5-5.1)
[2021-06-27] MEDS: *HR* Heparin 5,000 UNIT/ML VIAL SQ SCH ×3 (06:15→20:56)
[2021-06-27] MEDS: methylPREDNISolone 125 MG/2 ML VIAL IVP SCH ×3 (06:15→20:55)
[2021-06-27] MEDS: Pantoprazole 40 MG VIAL IVP SCH (07:19)
[2021-06-27] MEDS: Chlorhexidine Rinse 15 ML MOUTHWASH MM SCH ×2 (07:19→20:56)
[2021-06-27] MEDS: Budesonide/Formoterol 160/4.5 1 PUFF INH IH SCH ×2 (09:39→22:40)
[2021-06-27] MEDS: Insulin DETEMIR 100 UNIT/ML X5UNITS SUBQ SCH ×2 (13:06→20:56)
[2021-06-27] MEDS ORDERED: Clinimix 5%-20% SOLUTION 2,000 ML with MVI, adult with vitamin K 10 ML, Sodium Acetat... IVC SCH (17:00)
[2021-06-27] MEDS ORDERED: Insulin LISPRO 300 UNITS/3 ML VIAL SUBQ SCH (21:02)
[2021-06-28] MEDS: Artificial Tears SOLN 15 ML BOTTLE BOTH EYES SCH ×7 (00:05→23:32)
[2021-06-28] MEDS: Insulin LISPRO 300 UNITS/3 ML VIAL SUBQ SCH ×7 (03:50→23:30)
[2021-06-28] MEDS: *HR* Labetalol 20 MG/4 ML SYRINGE IVP PRN ×2 (04:17→11:48)
[2021-06-28 05:29] LABS: Basophils % 0.1 %; Hematocrit 37.1 % (35.3-44.9); Hemoglobin 10.9 g/dL (11.5-15.4); Lymphocytes # 0.4 K/mcL (0.6-4.6); Lymphocytes % 3.1 %; Mean Corpuscular HGB Conc 29.4 g/dL (31.6-35.5); Mean Corpuscular Hemoglobin 25.8 pg (28.0-33.3); Mean Corpuscular Volume 87.7 fL (83.0-100.0); Mean Platelet Volume 12.1 fL (9.4-12.4); Monocytes # 0.2 K/mcL (0.0-1.3); Monocytes % 1.4 %; Neutrophils # 12.6 K/mcL (1.6-8.9); Platelet Count 242 K/mcL (140-400); Red Blood Count 4.23 M/mcL (3.82-4.97); Red Cell Distribution Width 14.6 % (11.5-14.5); Segmented Neutrophils % 94.4 %; White Blood Count 13.4 K/mcL (4.3-11.1)
[2021-06-28 05:51] LABS: Calcium 8.6 mg/dL (8.6-10.3); Magnesium 2.7 mg/dL (1.6-2.6); Phosphorous 4.2 mg/dL (2.7-4.5); Potassium 5.8 mEq/L (3.5-5.1)
[2021-06-28] MEDS: Budesonide/Formoterol 160/4.5 1 PUFF INH IH SCH ×2 (07:22→19:43)
[2021-06-28] MEDS: methylPREDNISolone 125 MG/2 ML VIAL IVP SCH ×3 (07:25→19:57)
[2021-06-28] MEDS: *HR* Heparin 5,000 UNIT/ML VIAL SQ SCH ×3 (07:26→20:55)
[2021-06-28] MEDS: Insulin DETEMIR 100 UNIT/ML X5UNITS SUBQ SCH ×2 (07:27→19:56)
[2021-06-28] MEDS: Chlorhexidine Rinse 15 ML MOUTHWASH MM SCH ×2 (07:38→19:56)
[2021-06-28] MEDS: Pantoprazole 40 MG VIAL IVP SCH (07:41)
[2021-06-28] MEDS ORDERED: Insulin Human Regular 10 UNIT in 0.9 % Sodium Chloride 10 ML IV ONE (09:10)
[2021-06-28] MEDS ORDERED: Insulin DETEMIR 100 UNIT/ML X5UNITS SUBQ ONE (09:39)
[2021-06-28] MEDS ORDERED: Insulin LISPRO 300 UNITS/3 ML VIAL SUBQ ONE (09:40)
[2021-06-28] MEDS ORDERED: Clinimix 5%-20% SOLUTION 2,000 ML with MVI, adult with vitamin K 10 ML, Sodium Acetat... IVC SCH (17:00)
[2021-06-28] MEDS ORDERED: Insulin DETEMIR 100 UNIT/ML X5UNITS SUBQ SCH (21:00)
[2021-06-29 00:15] LABS: Calcium 8.8 mg/dL (8.6-10.3); Potassium 4.9 mEq/L (3.5-5.1)
[2021-06-29] MEDS: D5% in Water 1,000 ML IVC SCH ×2 (03:58→17:38)
[2021-06-29] MEDS: Artificial Tears SOLN 15 ML BOTTLE BOTH EYES SCH ×6 (04:14→23:52)
[2021-06-29] MEDS: Insulin LISPRO 300 UNITS/3 ML VIAL SUBQ SCH ×6 (04:36→23:53)
[2021-06-29] MEDS: methylPREDNISolone 125 MG/2 ML VIAL IVP SCH ×3 (04:36→19:40)
[2021-06-29] MEDS: *HR* Labetalol 20 MG/4 ML SYRINGE IVP PRN ×5 (04:37→23:45)
[2021-06-29] MEDS: *HR* Heparin 5,000 UNIT/ML VIAL SQ SCH ×3 (05:08→19:40)
[2021-06-29 05:49] LABS: Magnesium 2.7 mg/dL (1.6-2.6); Phosphorous 3.8 mg/dL (2.7-4.5)
[2021-06-29 05:59] LABS: Basophils % 0.1 %; Hematocrit 36.1 % (35.3-44.9); Hemoglobin 10.8 g/dL (11.5-15.4); Immature Granulocytes % 0.5 % (0-4); Lymphocytes # 0.5 K/mcL (0.6-4.6); Mean Corpuscular HGB Conc 29.9 g/dL (31.6-35.5); Mean Corpuscular Hemoglobin 26.9 pg (28.0-33.3); Mean Corpuscular Volume 89.8 fL (83.0-100.0); Mean Platelet Volume 11.9 fL (9.4-12.4); Monocytes # 0.4 K/mcL (0.0-1.3); Neutrophils # 11.1 K/mcL (1.6-8.9); Platelet Count 237 K/mcL (140-400); Red Blood Count 4.02 M/mcL (3.82-4.97); Red Cell Distribution Width 14.6 % (11.5-14.5); Segmented Neutrophils % 92.4 %
[2021-06-29] MEDS: Pantoprazole 40 MG VIAL IVP SCH (08:17)
[2021-06-29] MEDS: Insulin DETEMIR 100 UNIT/ML X5UNITS SUBQ SCH ×2 (09:27→20:08)
[2021-06-29] MEDS: Chlorhexidine Rinse 15 ML MOUTHWASH MM SCH ×2 (09:27→19:41)
[2021-06-29] MEDS: Budesonide/Formoterol 160/4.5 1 PUFF INH IH SCH ×2 (11:41→20:04)
[2021-06-29 12:26] LABS: Calcium 8.7 mg/dL (8.6-10.3); Potassium 4.9 mEq/L (3.5-5.1)
[2021-06-29] MEDS ORDERED: Clinimix 5%-20% SOLUTION 2,000 ML with MVI, adult with vitamin K 10 ML, Sodium Acetat... IVC SCH (17:00)
[2021-06-30] MEDS: *HR* Labetalol 20 MG/4 ML SYRINGE IVP PRN ×3 (01:16→23:40)
[2021-06-30] MEDS: Artificial Tears SOLN 15 ML BOTTLE BOTH EYES SCH ×5 (03:23→21:09)
[2021-06-30 03:24] LABS: Calcium 8.7 mg/dL (8.6-10.3); Magnesium 2.5 mg/dL (1.6-2.6); Phosphorous 3.5 mg/dL (2.7-4.5); Potassium 4.6 mEq/L (3.5-5.1)
[2021-06-30] MEDS: methylPREDNISolone 125 MG/2 ML VIAL IVP SCH ×3 (04:05→21:10)
[2021-06-30] MEDS: Insulin LISPRO 300 UNITS/3 ML VIAL SUBQ SCH ×5 (04:06→21:10)
[2021-06-30] MEDS: *HR* Heparin 5,000 UNIT/ML VIAL SQ SCH ×3 (04:34→21:11)
[2021-06-30] MEDS: *HR* Metoprolol 5 MG/5 ML VIAL IVP PRN ×2 (04:56→21:35)
[2021-06-30] MEDS: Budesonide/Formoterol 160/4.5 1 PUFF INH IH SCH ×2 (08:05→19:52)
[2021-06-30] MEDS: Pantoprazole 40 MG VIAL IVP SCH (08:45)
[2021-06-30] MEDS: Chlorhexidine Rinse 15 ML MOUTHWASH MM SCH ×2 (08:45→21:10)
[2021-06-30] MEDS: Insulin DETEMIR 100 UNIT/ML X5UNITS SUBQ SCH ×2 (08:46→21:11)
[2021-06-30 09:38] LABS: Basophils % 0.1 %; Hematocrit 36.6 % (35.3-44.9); Hemoglobin 10.9 g/dL (11.5-15.4); Immature Granulocytes % 1.1 % (0-4); Lymphocytes # 0.5 K/mcL (0.6-4.6); Lymphocytes % 3.2 %; Mean Corpuscular HGB Conc 29.8 g/dL (31.6-35.5); Mean Corpuscular Hemoglobin 26.6 pg (28.0-33.3); Mean Corpuscular Volume 89.3 fL (83.0-100.0); Mean Platelet Volume 11.7 fL (9.4-12.4); Monocytes # 0.4 K/mcL (0.0-1.3); Monocytes % 2.6 %; Neutrophils # 13.1 K/mcL (1.6-8.9); Platelet Count 231 K/mcL (140-400); Red Cell Distribution Width 14.5 % (11.5-14.5); White Blood Count 14.1 K/mcL (4.3-11.1)
[2021-06-30] MEDS ORDERED: Clinimix 5%-20% SOLUTION 2,000 ML with MVI, adult with vitamin K 10 ML, Sodium Acetat... IVC SCH (17:00)
[2021-07-01] MEDS: Artificial Tears SOLN 15 ML BOTTLE BOTH EYES SCH ×6 (00:25→21:59)
[2021-07-01] MEDS: Insulin LISPRO 300 UNITS/3 ML VIAL SUBQ SCH ×6 (00:25→21:59)
[2021-07-01] MEDS: methylPREDNISolone 125 MG/2 ML VIAL IVP SCH ×3 (05:40→21:58)
[2021-07-01] MEDS: *HR* Heparin 5,000 UNIT/ML VIAL SQ SCH ×3 (05:40→21:58)
[2021-07-01 06:11] LABS: Basophils % 0.1 %; Hematocrit 36.2 % (35.3-44.9); Hemoglobin 10.5 g/dL (11.5-15.4); Immature Granulocytes % 0.7 % (0-4); Lymphocytes # 0.4 K/mcL (0.6-4.6); Lymphocytes % 2.7 %; Mean Corpuscular Volume 89.6 fL (83.0-100.0); Mean Platelet Volume 11.8 fL (9.4-12.4); Monocytes # 0.5 K/mcL (0.0-1.3); Monocytes % 3.5 %; Platelet Count 224 K/mcL (140-400); Red Blood Count 4.04 M/mcL (3.82-4.97); Red Cell Distribution Width 14.6 % (11.5-14.5); White Blood Count 12.9 K/mcL (4.3-11.1)
[2021-07-01 06:41] LABS: Calcium 8.6 mg/dL (8.6-10.3); Magnesium 2.7 mg/dL (1.6-2.6); Phosphorous 4.4 mg/dL (2.7-4.5); Potassium 4.5 mEq/L (3.5-5.1)
[2021-07-01] MEDS: Budesonide/Formoterol 160/4.5 1 PUFF INH IH SCH ×2 (07:15→20:48)
[2021-07-01] MEDS: *HR* Metoprolol 5 MG/5 ML VIAL IVP PRN (07:18)
[2021-07-01] MEDS ORDERED: ceFAZolin 2,000 MG in Water for inj. (sterile) 20 ML IVP ONE (07:44)
[2021-07-01] MEDS: Pantoprazole 40 MG VIAL IVP SCH (07:47)
[2021-07-01] MEDS: Chlorhexidine Rinse 15 ML MOUTHWASH MM SCH ×2 (07:47→21:58)
[2021-07-01] MEDS: Insulin DETEMIR 100 UNIT/ML X5UNITS SUBQ SCH ×2 (07:47→21:58)
[2021-07-01] MEDS ORDERED: *HR* Rocuronium Bromide 50 MG/5 ML VIAL ONE (07:48)
[2021-07-01] MEDS ORDERED: *HR* FentaNYL (PF) 100 MCG/2 ML VIAL ONE ×3 (07:48→09:12)
[2021-07-01] MEDS ORDERED: *HR* Midazolam HCl 2 MG/2 ML VIAL ONE ×2 (07:49→08:26)
[2021-07-01] MEDS ORDERED: Ondansetron 4 MG/2 ML VIAL ONE (08:31)
[2021-07-01] MEDS: *HR* Labetalol 20 MG/4 ML SYRINGE IVP PRN (14:08)
[2021-07-01] MEDS: D5% in Water 1,000 ML IVC SCH ×2 (14:36→18:35)
[2021-07-01] MEDS ORDERED: Clinimix 5%-20% SOLUTION 2,000 ML with MVI, adult with vitamin K 10 ML, Sodium Acetat... IVC SCH (17:00)
[2021-07-02] MEDS: Insulin LISPRO 300 UNITS/3 ML VIAL SUBQ SCH ×5 (01:01→20:40)
[2021-07-02] MEDS: Artificial Tears SOLN 15 ML BOTTLE BOTH EYES SCH ×5 (01:02→19:35)
[2021-07-02] MEDS: methylPREDNISolone 125 MG/2 ML VIAL IVP SCH ×3 (05:11→19:37)
[2021-07-02] MEDS: *HR* Heparin 5,000 UNIT/ML VIAL SQ SCH ×3 (05:12→19:37)
[2021-07-02 05:44] LABS: Calcium 8.5 mg/dL (8.6-10.3); Magnesium 2.6 mg/dL (1.6-2.6); Phosphorous 3.7 mg/dL (2.7-4.5); Potassium 4.3 mEq/L (3.5-5.1)
[2021-07-02] MEDS: Budesonide/Formoterol 160/4.5 1 PUFF INH IH SCH ×3 (08:15→19:49)
[2021-07-02] MEDS ORDERED: D5% in Water 1,000 ML IVC PRN (08:56)
[2021-07-02] MEDS ORDERED: D10% in Water 500 ML IVC PRN (08:56)
[2021-07-02] MEDS ORDERED: *HR* Labetalol 20 MG/4 ML SYRINGE IVP PRN (08:56)
[2021-07-02] MEDS ORDERED: Clinimix 5%-20% SOLUTION 2,000 ML with MVI, adult with vitamin K 10 ML, Sodium Acetat... IVC SCH (08:56)
[2021-07-02] MEDS ORDERED: *HR* Metoprolol 5 MG/5 ML VIAL IVP PRN (08:56)
[2021-07-02] MEDS ORDERED: Naloxone 0.4 MG/ML INJ IVP PRN (08:56)
[2021-07-02] MEDS ORDERED: Acetaminophen 325 MG TABLET PO PRN (08:56)
[2021-07-02] MEDS ORDERED: Ondansetron 4 MG/2 ML VIAL IVP PRN (08:56)
[2021-07-02] MEDS ORDERED: Dextrose Gel 15 GM/37.5 ML TUBE PO PRN ×2 (08:56)
[2021-07-02] MEDS ORDERED: *HR* Dextrose 50 % in Water (Syg) 50 ML SYRINGE IVP PRN (08:56)
[2021-07-02] MEDS ORDERED: Artificial Tears SOLN 15 ML BOTTLE BOTH EYES PRN (08:56)
[2021-07-02] MEDS: Furosemide 40 MG/4 ML VIAL IVP SCH ×2 (09:17→19:36)
[2021-07-02] MEDS: Chlorhexidine Rinse 15 ML MOUTHWASH MM SCH ×2 (09:17→19:36)
[2021-07-02] MEDS: Pantoprazole 40 MG VIAL IVP SCH (09:18)
[2021-07-02] MEDS: D5% in Water 1,000 ML IVC SCH (09:18)
[2021-07-02] MEDS: Insulin DETEMIR 100 UNIT/ML X5UNITS SUBQ SCH ×2 (11:11→19:42)
[2021-07-02 12:10] LABS: Basophils % 0.1 %; Hematocrit 34.4 % (35.3-44.9); Hemoglobin 10.3 g/dL (11.5-15.4); Immature Granulocytes % 0.9 % (0-4); Lymphocytes # 0.3 K/mcL (0.6-4.6); Lymphocytes % 2.5 %; Mean Corpuscular HGB Conc 29.9 g/dL (31.6-35.5); Mean Corpuscular Hemoglobin 26.5 pg (28.0-33.3); Mean Corpuscular Volume 88.7 fL (83.0-100.0); Mean Platelet Volume 11.8 fL (9.4-12.4); Monocytes # 0.3 K/mcL (0.0-1.3); Monocytes % 2.4 %; Neutrophils # 11.6 K/mcL (1.6-8.9); Platelet Count 182 K/mcL (140-400); Red Blood Count 3.88 M/mcL (3.82-4.97); Red Cell Distribution Width 14.4 % (11.5-14.5); Segmented Neutrophils % 94.1 %; White Blood Count 12.3 K/mcL (4.3-11.1)
[2021-07-02] MEDS ORDERED: Clinimix E 5%-15% SOLUTION 2,000 ML with MVI, adult with vitamin K 10 ML IVC SCH (17:00)
[2021-07-03] MEDS: Artificial Tears SOLN 15 ML BOTTLE BOTH EYES SCH ×6 (00:10→19:36)
[2021-07-03] MEDS: Insulin LISPRO 300 UNITS/3 ML VIAL SUBQ SCH ×6 (00:10→21:03)
[2021-07-03] MEDS: D5% in Water 1,000 ML IVC SCH ×2 (01:59→18:05)
[2021-07-03] MEDS: methylPREDNISolone 125 MG/2 ML VIAL IVP SCH ×3 (03:18→19:37)
[2021-07-03] MEDS: *HR* Heparin 5,000 UNIT/ML VIAL SQ SCH ×3 (03:19→21:07)
[2021-07-03 03:49] LABS: Calcium 8.3 mg/dL (8.6-10.3); Magnesium 2.3 mg/dL (1.6-2.6); Phosphorous 4.6 mg/dL (2.7-4.5)
[2021-07-03] MEDS: Chlorhexidine Rinse 15 ML MOUTHWASH MM SCH ×2 (07:46→19:36)
[2021-07-03] MEDS: Furosemide 40 MG/4 ML VIAL IVP SCH ×2 (07:47→19:36)
[2021-07-03] MEDS: Pantoprazole 40 MG VIAL IVP SCH (07:47)
[2021-07-03] MEDS: Insulin DETEMIR 100 UNIT/ML X5UNITS SUBQ SCH ×2 (07:50→20:08)
[2021-07-03] MEDS: Budesonide/Formoterol 160/4.5 1 PUFF INH IH SCH ×2 (07:58→22:15)
[2021-07-04] MEDS: Artificial Tears SOLN 15 ML BOTTLE BOTH EYES SCH ×7 (00:29→23:46)
[2021-07-04] MEDS: Insulin LISPRO 300 UNITS/3 ML VIAL SUBQ SCH ×7 (00:29→23:46)
[2021-07-04] MEDS: methylPREDNISolone 125 MG/2 ML VIAL IVP SCH ×3 (05:08→20:18)
[2021-07-04] MEDS: *HR* Heparin 5,000 UNIT/ML VIAL SQ SCH ×3 (05:09→20:18)
[2021-07-04 05:56] LABS: Hematocrit 35.7 % (35.3-44.9); Hemoglobin 11.1 g/dL (11.5-15.4); Mean Corpuscular HGB Conc 31.1 g/dL (31.6-35.5); Mean Corpuscular Hemoglobin 26.9 pg (28.0-33.3); Mean Corpuscular Volume 86.7 fL (83.0-100.0); Mean Platelet Volume 11.9 fL (9.4-12.4); Platelet Count 216 K/mcL (140-400); Red Blood Count 4.12 M/mcL (3.82-4.97); Red Cell Distribution Width 14.8 % (11.5-14.5); White Blood Count 17.7 K/mcL (4.3-11.1)
[2021-07-04 06:11] LABS: Calcium 8.1 mg/dL (8.6-10.3); Potassium 4.1 mEq/L (3.5-5.1)
[2021-07-04] MEDS: Pantoprazole 40 MG VIAL IVP SCH (07:22)
[2021-07-04] MEDS: Furosemide 40 MG/4 ML VIAL IVP SCH (07:22)
[2021-07-04] MEDS: Insulin DETEMIR 100 UNIT/ML X5UNITS SUBQ SCH ×2 (07:23→20:18)
[2021-07-04] MEDS: Chlorhexidine Rinse 15 ML MOUTHWASH MM SCH ×2 (07:23→20:17)
[2021-07-04] MEDS: Budesonide/Formoterol 160/4.5 1 PUFF INH IH SCH ×2 (07:49→21:27)
[2021-07-04] MEDS ORDERED: Piperacillin/Tazobactam 3.375 GM in 0.9 % Sodium Chloride Mini Bag 100 ML IVPB SCH (08:28)
[2021-07-04 08:43] LABS: Basophils % 0.1 %; Immature Granulocytes % 0.4 % (0-4); Lymphocytes # 0.9 K/mcL (0.6-4.6); Lymphocytes % 4.8 %; Monocytes % 5.5 %; Neutrophils # 15.9 K/mcL (1.6-8.9); Segmented Neutrophils % 89.2 %
[2021-07-04] MEDS ORDERED: Vancomycin 2,000 MG/520 ML IV.SOLN IVPB ONE (09:04)
[2021-07-04] MEDS: D5% in Water 1,000 ML IVC SCH ×2 (09:36→18:05)
[2021-07-05] MEDS: D5% in Water 1,000 ML IVC SCH ×2 (03:10→08:16)
[2021-07-05] MEDS: *HR* Heparin 5,000 UNIT/ML VIAL SQ SCH (06:04)
[2021-07-05] MEDS: methylPREDNISolone 125 MG/2 ML VIAL IVP SCH (06:04)
[2021-07-05] MEDS: Insulin LISPRO 300 UNITS/3 ML VIAL SUBQ SCH ×3 (06:06→08:17)
[2021-07-05] MEDS: Artificial Tears SOLN 15 ML BOTTLE BOTH EYES SCH ×5 (06:06→20:28)
[2021-07-05] MEDS: Budesonide/Formoterol 160/4.5 1 PUFF INH IH SCH (07:43)
[2021-07-05] MEDS: Insulin DETEMIR 100 UNIT/ML X5UNITS SUBQ SCH (08:17)
[2021-07-05] MEDS: Pantoprazole 40 MG VIAL IVP SCH (08:17)
[2021-07-05] MEDS: Chlorhexidine Rinse 15 ML MOUTHWASH MM SCH ×2 (08:17→20:30)
[2021-07-05] MEDS ORDERED: Vancomycin 1,500 MG/265 ML IV.SOLN IVPB SCH ×2 (10:00)
[2021-07-05] MEDS: Scopolamine Patch 1.5 MG PATCH.TD72 TD SCH (16:58)
[2021-07-05] MEDS: *HR* LORazepam 2 MG/ML VIAL IVP PRN ×2 (17:35→20:30)
[2021-07-05] MEDS: *HR* FentaNYL (PF) 100 MCG/2 ML VIAL IVP PRN ×2 (17:35→20:34)
[2021-07-06] MEDS: Artificial Tears SOLN 15 ML BOTTLE BOTH EYES SCH ×3 (03:13→09:20)
[2021-07-06] MEDS: *HR* FentaNYL (PF) 100 MCG/2 ML VIAL IVP PRN ×3 (03:13→22:11)
[2021-07-06] MEDS: *HR* LORazepam 2 MG/ML VIAL IVP PRN ×4 (03:16→22:10)
[2021-07-06] MEDS: Chlorhexidine Rinse 15 ML MOUTHWASH MM SCH (07:32)
[2021-07-06] MEDS ORDERED: Atropine 1% Opth Drops 100 DROP/5 ML BOTTLE SL PRN (09:32)
[2021-07-06] MEDS ORDERED: Acetaminophen 650 MG RECTAL SUPP RC PRN (09:32)
[2021-07-06] MEDS ORDERED: *HR* FentaNYL (PF) 100 MCG/2 ML VIAL IVP PRN (09:32)
[2021-07-06] MEDS ORDERED: Haloperidol Lactate 5 MG/ML VIAL IVP PRN (09:33)
[2021-07-06] MEDS ORDERED: Glycopyrrolate 0.2 MG/ML VIAL IVP ONE (14:52)
[2021-07-06] MEDS: Scopolamine Patch 1.5 MG PATCH.TD72 TD SCH (15:10)
[2021-07-06 18:50] VITALS: BP 113/66; PULSE 113; TEMP 100.7; O2SAT 86
[2021-07-07] MEDS: *HR* LORazepam 2 MG/ML VIAL IVP PRN ×4 (00:08→09:15)
[2021-07-07] MEDS: *HR* FentaNYL (PF) 100 MCG/2 ML VIAL IVP PRN ×3 (02:07→09:14)
== END 2021-07-07 09:26 | disposition expired | DRG 3 ==
LOC: 3NENU 21:14 → EMEROOARM 21:14 → 3NENU 06-11 03:20 → SUATTDRO 06-11 05:44 → ICNU 06-11 06:42 → 2NNU 06-17 03:06 → 3NENU 06-19 22:12 → 2NNU 06-23 13:16 → 2ANU 07-05 16:51
PROVIDERS: ADMIT Internal Medicine; ATTEND Internal Medicine
PROC: IRDRAIN (2021-06-12 12:00)